=== PATIENT | male | born 1935 | race Caucasian/White ===

== ENCOUNTER 2017-03-30 17:37 | Inpatient (IN) | payer OTHER ==
[~2017-03-30] VITALS: Ht 182.9 cm; Wt 59.6 kg
[2017-03-30] VITALS (7 sets, daily range): BP systolic 88–124; BP diastolic 37–63; PULSE 78–118; TEMP 37.2–38.4; O2SAT 96–100
[~2017-03-30 17:37] MED LIST: ALBU1AER9 INH; ASPI81TA28 PO; ATOR-24 PO; METO25TA56 PO; VITA1CAP4 PO
[2017-03-30] MEDS ORDERED: SODIUM CHLORIDE 0.9% 500ML 500 ML IV STA (18:13)
[2017-03-30] MEDS ORDERED: METHYLPREDNISOLONE 125 MG VIAL IV STA (18:13)
[2017-03-30] MEDS ORDERED: LEVAQUIN 750MG / 150ML D5W IV STA (18:13)
[2017-03-30] MEDS ORDERED: ACETAMINOPHEN 500 MG TAB PO STA (18:13)
[2017-03-30] MEDS ORDERED: VANCOMYCIN INJ 1,500 MG in SODIUM CHLORIDE 0.9% 500ML 500 ML IV STA (18:13)
[2017-03-30] MEDS ORDERED: ALBUT/IPRATROP 3MG/0.5MG NEB 3 ML VIAL INH STA (18:13)
[2017-03-30] MEDS ORDERED: LACTATED RINGER'S 1000ML 1,000 ML IV STA (18:13)
[2017-03-30 18:39] LABS: URINE APPEARANCE CLOUDY (CLEAR); URINE BILIRUBIN NEG (NEG); URINE COLOR YELLOW; URINE NITRITE NEG (NEG); URINE SPECIFIC GRAVITY 1.023 (1.000-1.030); UROBILINOGEN NEG (NEG)
[2017-03-30 18:41] LABS: MANUAL MICROSCOPIC REQUIRED? YES; REVIEW REQ? NO
--- NOTE | 2017-03-30 18:46 | DIAGNOSTIC IMAGING REPORT ---
CHEST ONE VIEW PORTABLE HISTORY: 81 years-old Male Evaluate Fever/Sepsis acute fever and sepsis COMPARISON: Chest radiograph 10/07/2015, chest CT 09/08/2013 TECHNIQUE: Semiupright AP view of the chest FINDINGS: Cardiac silhouette is within normal limits. There is tortuosity and atherosclerosis of the aorta. No pneumothorax, pleural effusion, focal airspace consolidation or overt pulmonary edema. Hyperinflated lungs are noted with emphysematous changes and chronic coarsened interstitial opacities. Bones are grossly intact. IMPRESSION: Emphysema without acute cardiopulmonary process. The above report was generated using voice recognition software. It may contain grammatical, syntax or spelling errors. Electronically signed by: Jules Alonso M.D. 03/30/2017 6:45 PM Dictated Date/Time: 03/30/2017 6:43 PM
[2017-03-30 18:51] LABS: INR 1.1 (0.9-1.1); PARTIAL THROMBOPLASTIN RATIO 1.1; PROTHROMBIN TIME (PATIENT) 11.6 SECONDS (9.0-12.0)
[2017-03-30 18:52] LABS: URINE BACTERIA NEG (NEG)
[2017-03-30 18:55] LABS: HEMATOCRIT 23.3 % (42-52); MEAN CELL VOLUME 64.4 fL (80-100); MEAN CORPUSCULAR HEMOGLOBIN 17.7 pg (25-34); MEAN CORPUSCULAR HGB CONC 27.5 g/dl (32-36); RED BLOOD COUNT 3.62 M/uL (4.7-6.1); WHITE BLOOD COUNT 4.93 K/uL (4.8-10.8)
[2017-03-30 19:04] LABS: VEN BLOOD GAS BASE EXCESS 1.2 mEq/L; VENOUS BLOOD GAS PCO2 45 mmHg (38.0-50.0); VENOUS BLOOD GAS PO2 20 mmHg
[2017-03-30 19:06] LABS: BUN/CREATININE RATIO 18.3 (10-20); CALCIUM 7.6 mg/dl (8.5-10.1); CREATININE 0.95 mg/dl (0.60-1.40); POTASSIUM 3.8 mmol/L (3.5-5.1)
[2017-03-30 19:21] LABS: MEAN PLATELET VOLUME 9.1 fL (7.4-10.4); PLATELET COUNT 179 K/uL (130-400)
[2017-03-30 19:23] LABS: BASO % 0.2 %; BASO ABS # 0.01 K/uL (0-0.2); COMPLETE YES; GIANT PLATELETS 1+; HYPOCHROMIA PRESENT; IG% 0.2 %; LARGE PLATELETS 1+; LYMPH % 9.7 %; LYMPH ABS # 0.48 K/uL (1.2-3.4); MICROCYTOSIS PRESENT; MONO % 2.6 %; NEUT % 87.3 %; POIKILOCYTOSIS PRESENT
[2017-03-30 19:24] LABS: CKMB/CK RATIO 0.1 (0-3.0)
[2017-03-30] MEDS ORDERED: PRLSR20 PO (19:30)
[2017-03-30] MEDS ORDERED: OXYC-57 PO (19:30)
[2017-03-30] MEDS ORDERED: LORA-741 PO (19:30)
[2017-03-30] MEDS ORDERED: OXGN (19:30)
[2017-03-30] MEDS ORDERED: ASPI81TA28 PO (19:30)
[2017-03-30] MEDS ORDERED: CITA10TA8 PO (19:30)
[2017-03-30] MEDS ORDERED: DOCU-94 PO (19:30)
[2017-03-30] MEDS ORDERED: ATR10 PO (19:30)
[2017-03-30] MEDS ORDERED: MULT-506 PO (19:30)
[2017-03-30] MEDS ORDERED: MRPL PO (19:33)
[2017-03-30 20:31] LABS: VEN BLD GAS O2 SATURATION < 60.0 %
--- NOTE | 2017-03-30 21:46 | History and Physical ---
History & Physical Date & Time of Service: Mar 30, 2017 at 21:46 Chief Complaint: Confusion, Weakness Primary Care Physician: Ramirez Young MD History of Present Illness Source: patient, family, clinic records, hospital records 81 year old male with PMH of COPD, HTN, AAA, CVA was brought to the Emergency Room with complaints altered mental status and weakness. History mostly obtained from his nephew. Pt has been on hospice for the past 2 yrs. His nephew (KATE) went to visit him and found him on the floor cover with urine. Pt was very confused and weak and was not able to recognize his hospice nurse. As per nephew, Pt lives alone. He checked on him yesterday, but pt was sleeping. Pt tried to call his niece last night, but the niece missed his called. when niece called back, pt did not answered. Nephew said that pt was very pale today. He said about 2 weeks ago, pt has a bloody bowel movement. Nephew said that the hospice nurse made him sign a paper to bring pt to the hospital for eval. He has been having a productive cough associated with chills. In the ER, he was found to be febrile. Denies any chest pain, palpitation, neck pain, headache, dizziness. Past Medical/Surgical History Medical Problems: (1) Aortic aneurysm rupture Status: Resolved (2) Hypertension Status: Chronic Social History Smoking Status: Former Smoker Immunizations History of Influenza Vaccine: No History of Tetanus Vaccine?: Unknown History of Pneumococcal: Unknown History of Hepatitis B Vaccine: Unknown Multi-Drug Resistant Organisms History of MDRO: No Allergies Coded Allergies: No Known Allergies (Verified , 03/30/17) Home Medications Scheduled Aspirin (Aspirin Ec), 81 MG PO DAILY Citalopram Hydrobromide (Celexa), 10 MG PO DAILY Docusate Sodium (Colace), 100 MG PO DAILY Home O2 Therapy (Oxygen), 3 LITERS NA CONTINOUS Multivitamin (Multivitamin), 1 TAB PO DAILY Omeprazole (Prilosec), 20 MG PO DAILY Scheduled PRN Albuterol Sulfate (Proair Respiclick), 1 PUFF INH Q4 PRN for Shortness of Breath Hydroxyzine HCl (Hydroxyzine HCl), 10 MG PO Q6 PRN for Itching Lorazepam (Ativan), 0.5 MG PO Q4 PRN for Anxiety Morphine Sulfate (Morphine Sulfate), 5-10 MG PO DIRECTED PRN for PRN Oxycodone/Acetaminophen 5MG/325MG (Percocet 5MG/325MG), 1 TABLET PO Q4H PRN for Pain Review of Systems Constitutional: + fever, + chills, + weakness Eyes: No eye pain, No redness ENT: + problem reported (decrease hearing function), No nasal symptoms, No sore throat Respiratory: + cough, + sputum, No shortness of breath Cardiovascular: No chest pain, No palpitations Abdomen: No pain, No nausea, No vomiting Musculoskeletal: No calf pain Genitourinary - Male: No hematuria, No dysuria Neurologic: + weakness, + balance problems Psychiatric: No substance abuse Endocrine: No excessive thirst Hematologic / Lymphatic: No abnormal bleeding/bruising Integumentary: No rash, No itch Physical Exam Vital Signs Date Time Temp Pulse Resp B/P (MAP) Pulse Ox O2 Delivery O2 Flow Rate FiO2 03/30/17 21:42 94 20 118/55 100 Room Air 4.0 Nasal Cannula 03/30/17 21:39 37.6 95 21 118/55 100 4.0 03/30/17 20:45 38.4 106 24 88/37 100 4.0 03/30/17 20:20 38.4 118 22 101/39 96 03/30/17 19:29 121 26 137/62 94 Nasal Cannula 3.0 03/30/17 18:25 92 Nasal Cannula 3.0 03/30/17 18:21 128 24 114/81 96 Nasal Cannula 4.0 03/30/17 18:06 39.5 123 24 142/82 94 Nasal Cannula 03/30/17 18:00 118 General Appearance: + cachetic Head: atraumatic Eyes: PERRL ENT: + pertinent finding (decrease hearing function) Neck: no JVD, trachea midline Respiratory/Chest: no respiratory distress, no accessory muscle use, + pertinent finding (poor air entry) Cardiovascular: no edema, no JVD Abdomen/GI: normal bowel sounds, non tender, soft Back: no CVA tenderness Extremities/Musculoskelatal: no calf tenderness Neurologic/Psych: alert, normal mood/affect, + pertinent finding (Oriented to people and place, able to move all 4 extremities) Skin: + pertinent finding (pale) Diagnostics Laboratory Results Results Past 24 Hours Test 03/30/17 18:00 03/30/17 18:20 03/30/17 18:27 03/30/17 20:00 Range/Units Urine Color YELLOW Urine Appearance CLOUDY CLEAR Urine pH 5.0 4.5-7.5 Urine Specific Wiley 1.023 1.000-1.030 Urine Protein 1+ NEG Urine Glucose (UA) NEG NEG Urine Ketones TRACE NEG Urine Occult Blood 2+ NEG Urine Nitrite NEG NEG Urine Bilirubin NEG NEG Urine Urobilinogen NEG NEG Urine Leukocyte Esterase NEG NEG Urine Hyaline Casts (Auto) 0-5 /lpf Urine RBC 5-10 0-4 /hpf Urine WBC 1-5 0-5 /hpf Urine Epithelial Cells 10-20 0-5 /lpf Urine Bacteria NEG NEG Urine Hyaline Casts 5-10 0-5 /lpf Urine Granular Casts 5-10 0 /lpf Urine Pathogenic Casts 0 /lpf White Blood Count 4.93 4.8-10.8 K/uL Red Blood Count 3.62 4.7-6.1 M/uL Hemoglobin 6.4 14.0-18.0 g/dL Hematocrit 23.3 42-52 % Mean Corpuscular Volume 64.4 80-100 fL Mean Corpuscular Hemoglobin 17.7 25-34 pg Mean Corpuscular Hemoglobin Concent 27.5 32-36 g/dl Platelet Count 179 130-400 K/uL Mean Platelet Volume 9.1 7.4-10.4 fL Neutrophils (%) (Auto) 87.3 % Lymphocytes (%) (Auto) 9.7 % Monocytes (%) (Auto) 2.6 % Eosinophils (%) (Auto) 0.0 % Basophils (%) (Auto) 0.2 % Neutrophils # (Auto) 4.30 1.4-6.5 K/uL Lymphocytes # (Auto) 0.48 1.2-3.4 K/uL Monocytes # (Auto) 0.13 0.11-0.59 K/uL Eosinophils # (Auto) 0.00 0-0.5 K/uL Basophils # (Auto) 0.01 0-0.2 K/uL RDW Standard Deviation 45.6 36.4-46.3 fL RDW Coefficient of Variation 19.1 11.5-14.5 % Immature Granulocyte % (Auto) 0.2 % Immature Granulocyte # (Auto) 0.01 0.00-0.02 K/uL Blood Smear Review Large Platelets 1+ Giant Platelets 1+ Hypochromasia PRESENT Poikilocytosis PRESENT Microcytosis PRESENT Prothrombin Time 11.6 9.0-12.0 SECONDS Prothromb Time International Ratio 1.1 0.9-1.1 Activated Partial Thromboplast Time 29.5 21.0-31.0 SECONDS Partial Thromboplastin Ratio 1.1 Venous Blood pH 7.39 7.36-7.41 Venous Blood Partial Pressure CO2 45 38.0-50.0 mmHg Venous Blood Partial Pressure O2 20 mmHg Venous Blood HCO3 26 mmol/L Venous Blood Oxygen Saturation < 60.0 % Venous Blood Base Excess 1.2 mEq/L Sodium Level 136 136-145 mmol/L Potassium Level 3.8 3.5-5.1 mmol/L Chloride Level 105 98-107 mmol/L Carbon Dioxide Level 25 21-32 mmol/L Anion Gap 6.0 3-11 mmol/L Blood Urea Nitrogen 17 7-18 mg/dl Creatinine 0.95 0.60-1.40 mg/dl Est Creatinine Clear Calc Drug Dose 50.4 ml/min Estimated GFR () 85.5 Estimated GFR (Non- 73.7 BUN/Creatinine Ratio 18.3 10-20 Random Glucose 109 70-99 mg/dl Calcium Level 7.6 8.5-10.1 mg/dl Total Bilirubin 0.4 0.2-1 mg/dl Direct Bilirubin 0.1 0-0.2 mg/dl Aspartate Amino Transf (AST/SGOT) 99 15-37 U/L Alanine Aminotransferase (ALT/SGPT) 31 12-78 U/L Alkaline Phosphatase 49 45-117 U/L Total Creatine Kinase 1783 39-308 U/L Creatine Kinase MB 2.0 0.5-3.6 ng/ml Creatine Kinase MB Ratio 0.1 0-3.0 Troponin I 0.112 0-0.045 ng/ml Total Protein 6.4 6.4-8.2 gm/dl Albumin 3.0 3.4-5.0 gm/dl Lipase 53 73-393 U/L Bedside Lactic Acid Venous 1.64 0.90-1.70 mmol/L Influenza Type A Antigen Neg for Influ A NEG Influenza Type B Antigen Neg for Influ B NEG Microbiology Results 03/30/17 Blood Culture, Received Pending 03/30/17 Blood Culture, Received Pending 03/30/17 Urine Culture, Received Pending Diagnostic Radiology CHEST ONE VIEW PORTABLE HISTORY: 81 years-old Male Evaluate Fever/Sepsis acute fever and sepsis COMPARISON: Chest radiograph 10/07/2015, chest CT 09/08/2013 TECHNIQUE: Semiupright AP view of the chest FINDINGS: Cardiac silhouette is within normal limits. There is tortuosity and atherosclerosis of the aorta. No pneumothorax, pleural effusion, focal airspace consolidation or overt pulmonary edema. Hyperinflated lungs are noted with emphysematous changes and chronic coarsened interstitial opacities. Bones are grossly intact. IMPRESSION: Emphysema without acute cardiopulmonary process. The above report was generated using voice recognition software. It may contain grammatical, syntax or spelling errors. Electronically signed by: Jules Alonso M.D. 03/30/2017 6:45 PM Dictated Date/Time: 03/30/2017 6:43 PM Impression Assessment and Plan Sepsis Present with fever, tachycardia, Altered mental status and hypotension in the ER WBC and lactic acid normal Received Vanco, Levaquin in the ER Blood cx and urine cx collected in the ER Continue Vanco and levaquin IV peripheral blood smear showed anaplasmosis will check for ehrlichiosis flu negative Monitor CBC check procalcitonin Altered Mental Status Related to above mental status improve as per son Pt and nephews refused any heroic management Refused CT head continue monitor Elevated troponin Mostly related to dehydration, rhabdo Denies any chest pain EKG showed sinus tachy Jose A hold asa due to Anemia follow troponin Pt refused any aggressive management Anemia had a episode of GI bleed 2 weeks ago Denies any active bleeding Hgb 6.4 on admission Received 2 units PRBC in the ER Pt does want any EGD and colonoscopy Repeat CBC in am hold aspirin Rhabdo CK level 1783 Continue IVF Repeat CK level in am COPD CXR showed Emphysema without acute cardiopulmonary process. Received solumedrol 125 mg Continue oxygen supplement and Duoneb DVT px on SCD CODE STATUS DNR Pt has been on hospice for 2 hrs Disposition Consult palliative care Discharge on home hospice Level of Care Med/Surg Resuscitation Status DO NOT RESUSCITATE VTE Prophylaxis VTE Risk Assessment Done? Y/N: Yes Risk Level: Moderate Given or contraindicated: SCD's
[2017-03-31] VITALS (10 sets, daily range): BP systolic 102–144; BP diastolic 52–76; PULSE 69–91; TEMP 36.4–37.2; O2SAT 92–100; Ht 182.9 cm; Wt 59.6 kg
--- NOTE | 2017-03-31 00:33 | EMERGENCY ROOM VISIT NOTE ---
History Report prepared by Bee: Mary Marinelli Under the Supervision of: Dr. Octaviano Boyer M.D. First contact with patient: 18:04 Stated Complaint: CONFUSION, WEAKNESS History of Present Illness The patient is an 81 year old male who presents to the Emergency Room with complaints of a persistent fever for the past 2 days. He is accompanied by his son and was brought to the ED via EMS. He received 500 ml of NSS while in the field. Nursing reports he has experienced increasing confusion and falls in the past 2 days. His son notes he did not recognize his hospice nurse earlier this week, which is unusual for him. This afternoon, his son gave him 1 Ativan, but he has had no Tylenol or Motrin for his fever. The patient also complains of chest pain and abdominal pain, but states the abdominal pain is "all the time". He has a history of COPD and complains of a productive cough recently as well as the chills. His son reports he has been on hospice for the past 2 years due to his breathing issues. The patient notes "a few weeks ago" he experienced hematochezia, but states "that cleared up". He denies any recent steroid use. The patient denies any LOC, headache, diaphoresis, visual changes, neck pain, nausea, vomiting, back pain, melena, urinary symptoms, numbness, weakness, lymphadenopathy, rash, or other complaints. Source of History: patient, family (son), nursing staff Onset: 2 days NETWORK CONTROLLER Position: other (global) Timing: other (persistent) Associated Symptoms: + chills, + cough, + chest pain, + abdominal pain, + hematochezia Review of Systems See HPI for pertinent positives and negatives. A total of ten systems were reviewed and were otherwise negative. Past Medical & Surgical Medical Problems: (1) Altered mental status (2) Anemia (3) Aortic aneurysm rupture (4) Confusion (5) COPD (chronic obstructive pulmonary disease) (6) Hypertension Social History Smoking Status: Former Smoker Alcohol Use: none Drug Use: none Marital Status: Housing Status: lives alone Occupation Status: retired Current/Historical Medications Scheduled Aspirin (Aspirin Ec), 81 MG PO DAILY Aspirin (Aspirin Ec), 81 MG PO DAILY Citalopram Hydrobromide (Celexa), 10 MG PO DAILY Docusate Sodium (Colace), 100 MG PO DAILY Home O2 Therapy (Oxygen), 3 LITERS NA CONTINOUS Multivitamin (Multivitamin), 1 TAB PO DAILY Omeprazole (Prilosec), 20 MG PO DAILY Scheduled PRN Hydroxyzine HCl (Hydroxyzine HCl), 10 MG PO Q6 PRN for PRN Lorazepam (Ativan), 0.5 MG PO Q4 PRN for Anxiety Morphine Sulfate (Morphine Sulfate), 5-10 MG PO DIRECTED PRN for PRN Oxycodone/Acetaminophen 5MG/325MG (Percocet 5MG/325MG), 1 TABLET PO Q4H PRN for Pain Allergies Coded Allergies: No Known Allergies (Verified , 03/30/17) Physical Exam Vital Signs Date Time Temp Pulse Resp B/P (MAP) Pulse Ox O2 Delivery O2 Flow Rate FiO2 03/30/17 21:42 94 20 118/55 100 Room Air 4.0 Nasal Cannula 03/30/17 21:39 37.6 95 21 118/55 100 4.0 03/30/17 20:45 38.4 106 24 88/37 100 4.0 03/30/17 20:20 38.4 118 22 101/39 96 03/30/17 19:29 121 26 137/62 94 Nasal Cannula 3.0 03/30/17 18:25 92 Nasal Cannula 3.0 03/30/17 18:21 128 24 114/81 96 Nasal Cannula 4.0 03/30/17 18:06 39.5 123 24 142/82 94 Nasal Cannula 03/30/17 18:00 118 Physical Exam GENERAL: Awake, alert, well-appearing, in no distress HENT: Normocephalic, atraumatic. Oropharynx unremarkable. EYES: Pale conjunctiva. Sclera non-icteric. NECK: Supple. No nuchal rigidity. FROM. No JVD. RESPIRATORY: Patient is tachypneic, scattered rhonchi. CARDIAC: Tachycardic heart rate, normal rhythm. Extremities warm and well perfused. Pulses equal. ABDOMEN: Soft, non-distended. No tenderness to palpation. No rebound or guarding. No masses. RECTAL: Deferred. MUSCULOSKELETAL: Chest examination reveals no tenderness. The back is symmetrical on inspection without obvious abnormality. There is no CVA tenderness to palpation. No joint edema. LOWER EXTREMITIES: Calves are equal size bilaterally and non-tender. No edema. No discoloration. NEURO: Normal sensorium. No sensory or motor deficits noted. SKIN: No rash or jaundice noted. Medical Decision & Procedures ER Provider Diagnostic Interpretation: Radiology results as stated below per my review and radiologist interpretation: CHEST ONE VIEW PORTABLE HISTORY: 81 years-old Male Evaluate Fever/Sepsis acute fever and sepsis COMPARISON: Chest radiograph 10/07/2015, chest CT 09/08/2013 TECHNIQUE: Semiupright AP view of the chest FINDINGS: Cardiac silhouette is within normal limits. There is tortuosity and atherosclerosis of the aorta. No pneumothorax, pleural effusion, focal airspace consolidation or overt pulmonary edema. Hyperinflated lungs are noted with emphysematous changes and chronic coarsened interstitial opacities. Bones are grossly intact. IMPRESSION: Emphysema without acute cardiopulmonary process. The above report was generated using voice recognition software. It may contain grammatical, syntax or spelling errors. Electronically signed by: Jules Alonso M.D. 03/30/2017 6:45 PM Laboratory Results 03/30/17 18:20 Red Blood Count 3.62, Mean Corpuscular Volume 64.4, Mean Corpuscular Hemoglobin 17.7, Mean Corpuscular Hemoglobin Concent 27.5, Mean Platelet Volume 9.1, Neutrophils (%) (Auto) 87.3, Lymphocytes (%) (Auto) 9.7, Monocytes (%) (Auto) 2.6, Eosinophils (%) (Auto) 0.0, Basophils (%) (Auto) 0.2, Neutrophils # (Auto) 4.30, Lymphocytes # (Auto) 0.48, Monocytes # (Auto) 0.13, Eosinophils # (Auto) 0.00, Basophils # (Auto) 0.01 03/30/17 18:20 Test 03/30/17 18:00 03/30/17 18:20 03/30/17 18:27 03/30/17 20:00 Urine Color YELLOW Urine Appearance CLOUDY (CLEAR) Urine pH 5.0 (4.5-7.5) Urine Specific Bandy 1.023 (1.000-1.030) Urine Protein 1+ (NEG) Urine Glucose (UA) NEG (NEG) Urine Ketones TRACE (NEG) Urine Occult Blood 2+ (NEG) Urine Nitrite NEG (NEG) Urine Bilirubin NEG (NEG) Urine Urobilinogen NEG (NEG) Urine Leukocyte Esterase NEG (NEG) Urine Hyaline Casts (Auto) /lpf (0-5) Urine RBC 5-10 /hpf (0-4) Urine WBC 1-5 /hpf (0-5) Urine Epithelial Cells 10-20 /lpf (0-5) Urine Bacteria NEG (NEG) Urine Hyaline Casts 5-10 /lpf (0-5) Urine Granular Casts 5-10 /lpf (0) Urine Pathogenic Casts /lpf (0) White Blood Count 4.93 K/uL (4.8-10.8) Red Blood Count 3.62 M/uL (4.7-6.1) Hemoglobin 6.4 g/dL (14.0-18.0) Hematocrit 23.3 % (42-52) Mean Corpuscular Volume 64.4 fL (80-100) Mean Corpuscular Hemoglobin 17.7 pg (25-34) Mean Corpuscular Hemoglobin Concent 27.5 g/dl (32-36) Platelet Count 179 K/uL (130-400) Mean Platelet Volume 9.1 fL (7.4-10.4) Neutrophils (%) (Auto) 87.3 % Lymphocytes (%) (Auto) 9.7 % Monocytes (%) (Auto) 2.6 % Eosinophils (%) (Auto) 0.0 % Basophils (%) (Auto) 0.2 % Neutrophils # (Auto) 4.30 K/uL (1.4-6.5) Lymphocytes # (Auto) 0.48 K/uL (1.2-3.4) Monocytes # (Auto) 0.13 K/uL (0.11-0.59) Eosinophils # (Auto) 0.00 K/uL (0-0.5) Basophils # (Auto) 0.01 K/uL (0-0.2) RDW Standard Deviation 45.6 fL (36.4-46.3) RDW Coefficient of Variation 19.1 % (11.5-14.5) Immature Granulocyte % (Auto) 0.2 % Immature Granulocyte # (Auto) 0.01 K/uL (0.00-0.02) Blood Smear Review Large Platelets 1+ Giant Platelets 1+ Hypochromasia PRESENT Poikilocytosis PRESENT Microcytosis PRESENT Prothrombin Time 11.6 SECONDS (9.0-12.0) Prothromb Time International Ratio 1.1 (0.9-1.1) Activated Partial Thromboplast Time 29.5 SECONDS (21.0-31.0) Partial Thromboplastin Ratio 1.1 Venous Blood pH 7.39 (7.36-7.41) Venous Blood Partial Pressure CO2 45 mmHg (38.0-50.0) Venous Blood Partial Pressure O2 20 mmHg Venous Blood HCO3 26 mmol/L Venous Blood Oxygen Saturation < 60.0 % Venous Blood Base Excess 1.2 mEq/L Anion Gap 6.0 mmol/L (3-11) Est Creatinine Clear Calc Drug Dose 50.4 ml/min Estimated GFR () 85.5 Estimated GFR (Non- 73.7 BUN/Creatinine Ratio 18.3 (10-20) Calcium Level 7.6 mg/dl (8.5-10.1) Total Bilirubin 0.4 mg/dl (0.2-1) Direct Bilirubin 0.1 mg/dl (0-0.2) Aspartate Amino Transf (AST/SGOT) 99 U/L (15-37) Alanine Aminotransferase (ALT/SGPT) 31 U/L (12-78) Alkaline Phosphatase 49 U/L (45-117) Total Creatine Kinase 1783 U/L (39-308) Creatine Kinase MB 2.0 ng/ml (0.5-3.6) Creatine Kinase MB Ratio 0.1 (0-3.0) Troponin I 0.112 ng/ml (0-0.045) Total Protein 6.4 gm/dl (6.4-8.2) Albumin 3.0 gm/dl (3.4-5.0) Lipase 53 U/L (73-393) Bedside Lactic Acid Venous 1.64 mmol/L (0.90-1.70) Influenza Type A Antigen Neg for Influ A (NEG) Influenza Type B Antigen Neg for Influ B (NEG) Laboratory results reviewed by me Medications Administered Medications (Trade) Dose Ordered Sig/Al Route Start Time Stop Time Status Last Admin Dose Admin Albuterol/ Ipratropium (Duoneb) 3 ml NOW STAT INH 03/30/17 18:13 03/30/17 18:18 DC 03/30/17 19:15 3 ML Acetaminophen (Tylenol Tab) 1,000 mg NOW STAT PO 03/30/17 18:13 03/30/17 18:18 DC 03/30/17 19:15 1,000 MG Lactated Ringer's 1,000 ml @ 200 mls/hr Q5H STAT IV 03/30/17 18:13 03/30/17 23:12 DC 03/30/17 19:16 200 MLS/HR Methylprednisolone Sodium Succinate (Solu-Medrol IV) 125 mg NOW STAT IV 03/30/17 18:13 03/30/17 18:18 DC 03/30/17 19:15 125 MG Levofloxacin (Levaquin / D5W) 750 mg NOW STAT IV 03/30/17 18:13 03/30/17 18:18 DC 03/30/17 19:16 750 MG Vancomycin HCl 1500 mg/Sodium Chloride 530 ml @ 200 mls/hr ONE STAT IV 03/30/17 18:13 03/30/17 20:51 DC 03/30/17 19:18 200 MLS/HR Sodium Chloride 500 ml @ 999 mls/hr Q31M STAT IV 03/30/17 18:13 03/30/17 18:43 DC 03/30/17 18:13 999 MLS/HR ECG Indication: weakness Rate (beats per minute): 117 Rhythm: sinus tachycardia Findings: no acute ischemic change, no ectopy ED Course 1809: The patient was evaluated in room A9 . A complete history and physical exam was performed. 1812: NSS 500 ml @ 999 mls/hr IV, Vancomycin HCl 1500 mg/NSS 530 ml @ 200 mls/ hr IV, Levaquin 750 mg IV, Solu-Medrol 125 mg IV, Lactated Ringers 1000 ml @ 200 mls/hr IV, Acetaminophen 1000 mg PO, DuoNeb 3 ml INH. 1855: Nursing informed me the patients hemoglobin is 6.4. 1904: I reevaluated the patient. He is resting comfortably. I discussed my recommendation he remain in the hospital for further evaluation and management and he and his son verbalized complete understanding and agreement. 1932: I discussed the patients case with Rosalind Hernandez PA-C, [facility] Hospitalist. The patient will be further evaluated. Medical Decision Triage Nursing notes reviewed. The patient's presentation and history were concerning for fever and confusion. Etiologies such as sepsis, metabolic, infection, hypo/hyperglycemia, electrolyte abnormalities, cardiac sources, intracerebral event, toxicologic, neurologic, as well as others were entertained. The patient was evaluated. He had mild confusion. He was pale. He was hydrated. He was given a DuoNeb and Solu-Medrol. Chest x-ray revealed emphysematous changes without infiltrate. The patient had an unremarkable urine dip. He was given Levaquin and vancomycin for empiric coverage of sepsis. His CBC revealed a significant anemia. The patient and his son were educated and I discussed transfusion with them. The patient is on hospice however this is been going on for several years. He is OK with a blood transfusion as is the son.I gave my usual and customary discussion regarding this issue. He does not want intubation or mechanical ventilation. He doesn't want CPR or resuscitation. His blood pressure unremarkable. His troponin was elevated. ECG did not reveal any evidence of acute ischemic change. 2 units of packed red blood cells were ordered. The patient had a consultation placed with [facility] service. The patient was evaluated in the Emergency Room for further management. Medication Reconcilliation Current Medication List: was personally reviewed by me Blood Pressure Screening Patient's blood pressure: Normal blood pressure Blood pressure disposition: Did not require urgent referral Consults Time Called: 1914 Consulting Physician: [facility] Returned Call: 1932 I discussed the patients case with [facility] The patient will be further evaluated. Impression Primary Impression: Sepsis Additional Impressions: Anemia Elevated troponin Critical Care I have personally spent greater than 30 minutes of critical care time in the direct management of this patient. This includes bedside care, interpretation of diagnostic studies, and testing, discussion with consultants, patient, and family members, and other required patient management activities. This 30 minutes is in excess of all separately billable procedures. Scribe Attestation The scribe's documentation has been prepared under my direction and personally reviewed by me in its entirety. I confirm that the note above accurately reflects all work, treatment, procedures, and medical decision making performed by me. Departure Information Dispostion Being Evaluated By Hospitalist Ramirez Murphy MD (PCP) Problem Qualifiers
[2017-03-31] MEDS ORDERED: PNEUMOCOCCAL ADMINISTRATION CHARGE ONE (01:30)
[2017-03-31] MEDS ORDERED: PNEUMOCOCCAL POLYSACCHARIDES 25 MCG/0.5 ML VIAL/SYR IM. ONE (01:30)
[2017-03-31] MEDS ORDERED: INFLUENZA VACCINE HIGH DOSE 65+ 0.5 ML SYR IM. ONE (01:30)
[2017-03-31] MEDS ORDERED: INFLUENZA ADMINISTRATION CHARGE ONE (01:30)
[2017-03-31] MEDS ORDERED: ALBU18002 INH (04:19)
[2017-03-31] MEDS ORDERED: ALBUTEROL HFA INHALER 8.5 GM INH PRN (04:30)
[2017-03-31] MEDS ORDERED: hydrOXYzine HCL 10 MG TAB PO PRN (04:30)
[2017-03-31] MEDS ORDERED: SODIUM CHLORIDE 0.9% 1000ML 1,000 ML IV SCH (05:00)
[2017-03-31 05:37] LABS: HEMATOCRIT 28.7 % (42-52); MEAN CORPUSCULAR HGB CONC 28.9 g/dl (32-36); PLATELET COUNT 145 K/uL (130-400); PLT ESTIMATE NORMAL; RED BLOOD COUNT 4.16 M/uL (4.7-6.1); WHITE BLOOD COUNT 5.17 K/uL (4.8-10.8)
[2017-03-31 05:38] LABS: BUN/CREATININE RATIO 20.3 (10-20); CALCIUM 7.8 mg/dl (8.5-10.1); CREATININE 0.8 mg/dl (0.60-1.40)
[2017-03-31] MEDS ORDERED: VANCOMYCIN CONSULT ACTIVE PRN (06:00)
[2017-03-31] MEDS: MULTIVITAMIN TAB PO SCH (08:46)
[2017-03-31] MEDS: PANTOprazole SOD 40 MG TAB PO SCH (08:46)
[2017-03-31] MEDS: CITALOPRAM 20 MG TAB PO SCH (08:46)
[2017-03-31] MEDS: DOCUSATE SODIUM 100 MG CAP PO SCH (08:47)
[2017-03-31] MEDS ORDERED: ASPIRIN 81 MG ECTAB PO SCH (09:00)
[2017-03-31] MEDS: VANCOMYCIN INJ 750 MG in SODIUM CHLORIDE 0.9% 250ML 250 ML IV SCH (09:53)
--- NOTE | 2017-03-31 09:53 | Pharmacy Progress Note ---
Pharmacy Abx Initial Consult Date of Service Mar 31, 2017. Pharmacy Dosing Scope Date of Consult: 03/30/17 Consultation requested by: Dr. Marshall Pharmacy is consulted to initiate Vancomycin IV dosing therapy, order appropriate labs and adjust drug dose/frequency. Subjective The patient is a 81 year old male admitted on Mar 30, 2017 at 21:44 with AMS and weakness, found unresponsive covered in urine. PMH of COPD on O2 at home, HTN, AAA, CVA, lives at home alone, on hospice x 2 years with home nursing. Recently had bloody BM at home. Objective Height (Feet): 6 Height (Inches): 0.00 Weight (Kilograms): 59.600 Vital Signs (Past 12Hrs) Vital Signs Past 12 Hours Date Time Temp Pulse Resp B/P (MAP) Pulse Ox O2 Delivery O2 Flow Rate FiO2 03/31/17 07:56 36.4 76 18 133/69 (90) 97 Nasal Cannula 3.0 03/31/17 04:00 Nasal Cannula 2.0 03/31/17 04:00 36.6 69 22 102/52 (69) 98 Nasal Cannula 2.0 03/31/17 01:22 37.2 76 20 105/54 100 2.0 03/31/17 00:43 37.0 80 20 108/55 100 4.0 03/31/17 00:00 37.2 87 20 106/62 100 Nasal Cannula 4.0 03/30/17 23:45 37.2 87 20 106/62 100 4.0 03/30/17 23:00 37.4 97 22 124/63 100 4.0 03/30/17 22:45 37.6 78 22 100/51 100 4.0 03/30/17 22:38 85 22 100/51 100 Nasal Cannula 4.0 03/30/17 22:35 37.6 82 22 100/51 100 4.0 Lab Results (24Hrs) Last 24 Hours Test 03/30/17 18:00 03/30/17 18:20 03/30/17 18:27 03/30/17 20:00 Urine Color YELLOW Urine Appearance CLOUDY Urine pH 5.0 Urine Specific [place] 1.023 Urine Protein 1+ Urine Glucose (UA) NEG Urine Ketones TRACE Urine Occult Blood 2+ Urine Nitrite NEG Urine Bilirubin NEG Urine Urobilinogen NEG Urine Leukocyte Esterase NEG Urine Hyaline Casts (Auto) /lpf Urine RBC 5-10 /hpf Urine WBC 1-5 /hpf Urine Epithelial Cells 10-20 /lpf Urine Bacteria NEG Urine Hyaline Casts 5-10 /lpf Urine Granular Casts 5-10 /lpf Urine Pathogenic Casts /lpf White Blood Count 4.93 K/uL Red Blood Count 3.62 M/uL Hemoglobin 6.4 g/dL Hematocrit 23.3 % Mean Corpuscular Volume 64.4 fL Mean Corpuscular Hemoglobin 17.7 pg Mean Corpuscular Hemoglobin Concent 27.5 g/dl Platelet Count 179 K/uL Mean Platelet Volume 9.1 fL Neutrophils (%) (Auto) 87.3 % Lymphocytes (%) (Auto) 9.7 % Monocytes (%) (Auto) 2.6 % Eosinophils (%) (Auto) 0.0 % Basophils (%) (Auto) 0.2 % Neutrophils # (Auto) 4.30 K/uL Lymphocytes # (Auto) 0.48 K/uL Monocytes # (Auto) 0.13 K/uL Eosinophils # (Auto) 0.00 K/uL Basophils # (Auto) 0.01 K/uL RDW Standard Deviation 45.6 fL RDW Coefficient of Variation 19.1 % Immature Granulocyte % (Auto) 0.2 % Immature Granulocyte # (Auto) 0.01 K/uL Blood Smear Review Large Platelets 1+ Giant Platelets 1+ Hypochromasia PRESENT Poikilocytosis PRESENT Microcytosis PRESENT Prothrombin Time 11.6 SECONDS Prothromb Time International Ratio 1.1 Activated Partial Thromboplast Time 29.5 SECONDS Partial Thromboplastin Ratio 1.1 Venous Blood pH 7.39 Venous Blood Partial Pressure CO2 45 mmHg Venous Blood Partial Pressure O2 20 mmHg Venous Blood HCO3 26 mmol/L Venous Blood Oxygen Saturation < 60.0 % Venous Blood Base Excess 1.2 mEq/L Sodium Level 136 mmol/L Potassium Level 3.8 mmol/L Chloride Level 105 mmol/L Carbon Dioxide Level 25 mmol/L Anion Gap 6.0 mmol/L Blood Urea Nitrogen 17 mg/dl Creatinine 0.95 mg/dl Est Creatinine Clear Calc Drug Dose 50.4 ml/min Estimated GFR () 85.5 Estimated GFR (Non- 73.7 BUN/Creatinine Ratio 18.3 Random Glucose 109 mg/dl Calcium Level 7.6 mg/dl Total Bilirubin 0.4 mg/dl Direct Bilirubin 0.1 mg/dl Aspartate Amino Transf (AST/SGOT) 99 U/L Alanine Aminotransferase (ALT/SGPT) 31 U/L Alkaline Phosphatase 49 U/L Total Creatine Kinase 1783 U/L Creatine Kinase MB 2.0 ng/ml Creatine Kinase MB Ratio 0.1 Troponin I 0.112 ng/ml Total Protein 6.4 gm/dl Albumin 3.0 gm/dl Lipase 53 U/L Bedside Lactic Acid Venous 1.64 mmol/L Influenza Type A Antigen Neg for Influ A Influenza Type B Antigen Neg for Influ B Test 03/31/17 04:55 03/31/17 05:28 White Blood Count 5.17 K/uL Red Blood Count 4.16 M/uL Hemoglobin 8.3 g/dL Hematocrit 28.7 % Mean Corpuscular Volume 69.0 fL Mean Corpuscular Hemoglobin 20.0 pg Mean Corpuscular Hemoglobin Concent 28.9 g/dl RDW Standard Deviation 54.9 fL RDW Coefficient of Variation 21.7 % Platelet Count 145 K/uL Platelet Estimate NORMAL Sodium Level 138 mmol/L Potassium Level 4.0 mmol/L Chloride Level 104 mmol/L Carbon Dioxide Level 27 mmol/L Anion Gap 7.0 mmol/L Blood Urea Nitrogen 16 mg/dl Creatinine 0.80 mg/dl Est Creatinine Clear Calc Drug Dose 58.4 ml/min Estimated GFR () 95.7 Estimated GFR (Non- 82.6 BUN/Creatinine Ratio 20.3 Random Glucose 134 mg/dl Calcium Level 7.8 mg/dl Total Creatine Kinase 1523 U/L Troponin I 0.095 ng/ml Procalcitonin 1.33 ng/ml Micro Results Date/Time Source Procedure Growth Status 03/30/17 18:31 Blood Blood Culture Pending Received 03/30/17 18:23 Blood Blood Culture Pending Received 03/30/17 18:00 Urine,Catheterized Urine Culture Pending Received Assessment & Plan Assessment 81 year old male admitted for AMS and weakness, anemia, elevated troponin, sepsis, started on IV Vancomycin and Levaquin. Plan Vancomycin IV for treatment of Sepsis Vancomycin IV * Loading dose: 1500 mg (25.4 mg/kg) on 03/30 at 1900 * Maintenance dose: 750 mg IV (12.7 mg/kg) every 14 hours - will dose at patient 's half life, since dose is slightly low on mg/kg basis * Estimated pharmacokinetic parameters: T1/2 = 14hrs, Raul = 0.05/hr, Vd = 0.7 L/ kg * Goal trough level for sepsis : 15 to 20 mcg/mL * Trough level ordered for 04/01/17 prior to 1400 dose, this level will be drawn after patient has received 3 total doses of IV vancomycin Pharmacy will continue to follow and will adjust dose/frequency as necessary. Thank you.
--- NOTE | 2017-03-31 09:53 | Progress Note ---
Internal Med Progress Note Date of Service: Mar 31, 2017. Provider Documentation: SUBJECTIVE: Seen and examined at bedside Mental status seemed to be back to baseline Discussed with patient's Nephew: No aggressive measures per patient's wishes Would like to hold on future blood transfusions till he discusses with patient States having chills Denies chest pain, SOB, abd pain, dizziness No active bleeding issues OBJECTIVE: Vital Signs-as noted below Physical Exam: General Appearance:Thin, chronic ill appearing, no apparent distress Head: normocephalic, Atraumatic Eyes: normal inspection, EOMI, PERRL Neck: supple, Trachea midline Respiratory/Chest: Normal breath sounds, CTA Cardiovascular: S1, S2, No murmur Abdomen/GI:Soft, Non tender, Bowel sounds present Extremities/Musculoskelatal:normal inspection, no edema Neurologic/Psych:grossly no focal neurological deficits Skin: normal color, warm Lab data as noted below. ASSESSMENT & PLAN: Probable Sepsis SIRS Present with fever, tachycardia, Altered mental status and hypotension in the ER WBC and lactic acid normal Received Vanco, Levaquin in the ER Blood cx and urine cx: pending Continue Vanco and levaquin IV for now as clinically seemed to be improving peripheral blood smear showed anaplasmosis Serology for Anaplasmosis, ehrlichiosis pending flu negative Likely Metabolic Encephalopathy Altered Mental Status: unclear etiology mental status seemed to be improving No aggressive measures as per patient and family Refused CT head continue monitor Elevated troponin Levels trending down Denies any chest pain EKG: sinus tachy, Nonspecific ST and T wave abnormality hold asa due to Anemia No aggressive management per patient/family Anemia had a episode of GI bleed 2 weeks ago No acute bleeding issues Hgb 6.4>>>>8.3 S/P 2 units PRBCs Pt does want any EGD and colonoscopy Monitor Hb hold aspirin Nephew to discuss with patient prior to future blood transfusion, to hold for now Microhematuria on urine analysis Mild Rhabdo CK level [id number]>>>[id number] Continue IVF Monitor CK COPD CXR showed Emphysema without acute cardiopulmonary process. Received solumedrol 125 mg Continue oxygen supplement and Duoneb No signs of exacerbation DVT px SCD due to anemia CODE STATUS DNR Pt has been on hospice for 2 yrs Disposition Consulted manager social responsibility/palliative care Vital Signs: Date Time Temp Pulse Resp B/P (MAP) Pulse Ox O2 Delivery O2 Flow Rate FiO2 03/31/17 07:56 36.4 76 18 133/69 (90) 97 Nasal Cannula 3.0 03/31/17 04:00 Nasal Cannula 2.0 03/31/17 04:00 36.6 69 22 102/52 (69) 98 Nasal Cannula 2.0 03/31/17 01:22 37.2 76 20 105/54 100 2.0 03/31/17 00:43 37.0 80 20 108/55 100 4.0 03/31/17 00:00 37.2 87 20 106/62 100 Nasal Cannula 4.0 03/30/17 23:45 37.2 87 20 106/62 100 4.0 03/30/17 23:00 37.4 97 22 124/63 100 4.0 03/30/17 22:45 37.6 78 22 100/51 100 4.0 03/30/17 22:38 85 22 100/51 100 Nasal Cannula 4.0 03/30/17 22:35 37.6 82 22 100/51 100 4.0 03/30/17 21:42 94 20 118/55 100 Room Air 4.0 Nasal Cannula 03/30/17 21:39 37.6 95 21 118/55 100 4.0 03/30/17 20:45 38.4 106 24 88/37 100 4.0 03/30/17 20:20 38.4 118 22 101/39 96 03/30/17 19:29 121 26 137/62 94 Nasal Cannula 3.0 03/30/17 18:25 92 Nasal Cannula 3.0 03/30/17 18:21 128 24 114/81 96 Nasal Cannula 4.0 03/30/17 18:06 39.5 123 24 142/82 94 Nasal Cannula 03/30/17 18:00 118 Lab Results: Results Past 24 Hours Test 03/30/17 18:00 03/30/17 18:20 03/30/17 18:27 03/30/17 20:00 Range/Units Urine Color YELLOW Urine Appearance CLOUDY CLEAR Urine pH 5.0 4.5-7.5 Urine Specific [place] 1.023 1.000-1.030 Urine Protein 1+ NEG Urine Glucose (UA) NEG NEG Urine Ketones TRACE NEG Urine Occult Blood 2+ NEG Urine Nitrite NEG NEG Urine Bilirubin NEG NEG Urine Urobilinogen NEG NEG Urine Leukocyte Esterase NEG NEG Urine Hyaline Casts (Auto) 0-5 /lpf Urine RBC 5-10 0-4 /hpf Urine WBC 1-5 0-5 /hpf Urine Epithelial Cells 10-20 0-5 /lpf Urine Bacteria NEG NEG Urine Hyaline Casts 5-10 0-5 /lpf Urine Granular Casts 5-10 0 /lpf Urine Pathogenic Casts 0 /lpf White Blood Count 4.93 4.8-10.8 K/uL Red Blood Count 3.62 4.7-6.1 M/uL Hemoglobin 6.4 14.0-18.0 g/dL Hematocrit 23.3 42-52 % Mean Corpuscular Volume 64.4 80-100 fL Mean Corpuscular Hemoglobin 17.7 25-34 pg Mean Corpuscular Hemoglobin Concent 27.5 32-36 g/dl Platelet Count 179 130-400 K/uL Mean Platelet Volume 9.1 7.4-10.4 fL Neutrophils (%) (Auto) 87.3 % Lymphocytes (%) (Auto) 9.7 % Monocytes (%) (Auto) 2.6 % Eosinophils (%) (Auto) 0.0 % Basophils (%) (Auto) 0.2 % Neutrophils # (Auto) 4.30 1.4-6.5 K/uL Lymphocytes # (Auto) 0.48 1.2-3.4 K/uL Monocytes # (Auto) 0.13 0.11-0.59 K/uL Eosinophils # (Auto) 0.00 0-0.5 K/uL Basophils # (Auto) 0.01 0-0.2 K/uL RDW Standard Deviation 45.6 36.4-46.3 fL RDW Coefficient of Variation 19.1 11.5-14.5 % Immature Granulocyte % (Auto) 0.2 % Immature Granulocyte # (Auto) 0.01 0.00-0.02 K/uL Blood Smear Review Large Platelets 1+ Giant Platelets 1+ Hypochromasia PRESENT Poikilocytosis PRESENT Microcytosis PRESENT Prothrombin Time 11.6 9.0-12.0 SECONDS Prothromb Time International Ratio 1.1 0.9-1.1 Activated Partial Thromboplast Time 29.5 21.0-31.0 SECONDS Partial Thromboplastin Ratio 1.1 Venous Blood pH 7.39 7.36-7.41 Venous Blood Partial Pressure CO2 45 38.0-50.0 mmHg Venous Blood Partial Pressure O2 20 mmHg Venous Blood HCO3 26 mmol/L Venous Blood Oxygen Saturation < 60.0 % Venous Blood Base Excess 1.2 mEq/L Sodium Level 136 136-145 mmol/L Potassium Level 3.8 3.5-5.1 mmol/L Chloride Level 105 98-107 mmol/L Carbon Dioxide Level 25 21-32 mmol/L Anion Gap 6.0 3-11 mmol/L Blood Urea Nitrogen 17 7-18 mg/dl Creatinine 0.95 0.60-1.40 mg/dl Est Creatinine Clear Calc Drug Dose 50.4 ml/min Estimated GFR () 85.5 Estimated GFR (Non- 73.7 BUN/Creatinine Ratio 18.3 10-20 Random Glucose 109 70-99 mg/dl Calcium Level 7.6 8.5-10.1 mg/dl Total Bilirubin 0.4 0.2-1 mg/dl Direct Bilirubin 0.1 0-0.2 mg/dl Aspartate Amino Transf (AST/SGOT) 99 15-37 U/L Alanine Aminotransferase (ALT/SGPT) 31 12-78 U/L Alkaline Phosphatase 49 45-117 U/L Total Creatine Kinase 1783 39-308 U/L Creatine Kinase MB 2.0 0.5-3.6 ng/ml Creatine Kinase MB Ratio 0.1 0-3.0 Troponin I 0.112 0-0.045 ng/ml Total Protein 6.4 6.4-8.2 gm/dl Albumin 3.0 3.4-5.0 gm/dl Lipase 53 73-393 U/L Bedside Lactic Acid Venous 1.64 0.90-1.70 mmol/L Influenza Type A Antigen Neg for Influ A NEG Influenza Type B Antigen Neg for Influ B NEG Test 03/31/17 04:55 03/31/17 05:28 Range/Units White Blood Count 5.17 4.8-10.8 K/uL Red Blood Count 4.16 4.7-6.1 M/uL Hemoglobin 8.3 14.0-18.0 g/dL Hematocrit 28.7 42-52 % Mean Corpuscular Volume 69.0 80-100 fL Mean Corpuscular Hemoglobin 20.0 25-34 pg Mean Corpuscular Hemoglobin Concent 28.9 32-36 g/dl RDW Standard Deviation 54.9 36.4-46.3 fL RDW Coefficient of Variation 21.7 11.5-14.5 % Platelet Count 145 130-400 K/uL Platelet Estimate NORMAL Sodium Level 138 136-145 mmol/L Potassium Level 4.0 3.5-5.1 mmol/L Chloride Level 104 98-107 mmol/L Carbon Dioxide Level 27 21-32 mmol/L Anion Gap 7.0 3-11 mmol/L Blood Urea Nitrogen 16 7-18 mg/dl Creatinine 0.80 0.60-1.40 mg/dl Est Creatinine Clear Calc Drug Dose 58.4 ml/min Estimated GFR () 95.7 Estimated GFR (Non- 82.6 BUN/Creatinine Ratio 20.3 10-20 Random Glucose 134 70-99 mg/dl Calcium Level 7.8 8.5-10.1 mg/dl Total Creatine Kinase 1523 39-308 U/L Troponin I 0.095 0-0.045 ng/ml Procalcitonin 1.33 0-0.5 ng/ml Microbiology Results 03/30/17 Blood Culture, Received Pending 03/30/17 Blood Culture, Received Pending 03/30/17 Urine Culture, Received Pending
[2017-03-31] MEDS: ALBUT/IPRATROP 3MG/0.5MG NEB 3 ML VIAL INH PRN (16:36)
[2017-03-31] MEDS ORDERED: LEVOFLOXACIN / D5W 500 MG in PREMIXED IN D5W 100 ML IV SCH (20:00)
[2017-03-31] MEDS ORDERED: NURSING VERBAL MED ORDER ONE (23:45)
[2017-03-31] MEDS ORDERED: ACETAMINOPHEN 325 MG TAB PO PRN (23:45)
[2017-04-01] VITALS (8 sets, daily range): BP systolic 125–151; BP diastolic 61–79; PULSE 73–107; TEMP 36.4–36.8; O2SAT 96–98
[2017-04-01] MEDS: VANCOMYCIN INJ 750 MG in SODIUM CHLORIDE 0.9% 250ML 250 ML IV SCH ×2 (00:02→14:02)
[2017-04-01 06:16] LABS: MEAN CORPUSCULAR HGB CONC 29.2 g/dl (32-36)
[2017-04-01 06:44] LABS: HEMATOCRIT 28.1 % (42-52); MEAN CELL VOLUME 69.2 fL (80-100); MEAN CORPUSCULAR HEMOGLOBIN 20.2 pg (25-34); RED BLOOD COUNT 4.06 M/uL (4.7-6.1); WHITE BLOOD COUNT 3.89 K/uL (4.8-10.8)
[2017-04-01 06:49] LABS: PLATELET COUNT 117 K/uL (130-400); PLT ESTIMATE DECREASED
[2017-04-01 06:55] LABS: CALCIUM 7.5 mg/dl (8.5-10.1); CREATININE 0.7 mg/dl (0.60-1.40); MAGNESIUM 2.1 mg/dl (1.8-2.4); POTASSIUM 3.3 mmol/L (3.5-5.1)
[2017-04-01] MEDS: DOCUSATE SODIUM 100 MG CAP PO SCH (08:26)
[2017-04-01] MEDS: PANTOprazole SOD 40 MG TAB PO SCH (08:26)
[2017-04-01] MEDS: MULTIVITAMIN TAB PO SCH (08:26)
[2017-04-01] MEDS: CITALOPRAM 20 MG TAB PO SCH (08:26)
[2017-04-01] MEDS: ALBUT/IPRATROP 3MG/0.5MG NEB 3 ML VIAL INH PRN (08:28)
--- NOTE | 2017-04-01 09:42 | Progress Note ---
Internal Med Progress Note Date of Service: Apr 01, 2017. Provider Documentation: SUBJECTIVE: Seen and examined at bedside Reports mild cough Anxious and SOB this morning but resolved Patient prefers to be discharged home Mental status back to baseline Discussed with patient's Nephew/Patient: No aggressive measures per patient's wishes Prefers no blood transfusions in future Denies chest pain, SOB, abd pain, dizziness currently Reports feeling dizzy and had fell hitting his head prior to admission but prefers no Head CT OBJECTIVE: Vital Signs-as noted below Physical Exam: General Appearance:Thin, chronic ill appearing, no apparent distress Head: normocephalic, Atraumatic Eyes: normal inspection, EOMI, PERRL Neck: supple, Trachea midline Respiratory/Chest: Normal breath sounds, CTA Cardiovascular: S1, S2, No murmur Abdomen/GI:Soft, Non tender, Bowel sounds present Extremities/Musculoskelatal:normal inspection, no edema Neurologic/Psych:grossly no focal neurological deficits Skin: normal color, warm Lab data as noted below. ASSESSMENT & PLAN: Probable Sepsis SIRS Present with fever, tachycardia, Altered mental status and hypotension in the ER WBC and lactic acid normal Received Vanco, Levaquin in the ER Blood cx and urine cx: No growth to date Received empiric Vanco and levaquin for 2 days Start on Doxycycline as peripheral blood smear showed anaplasmosis Serology for Anaplasmosis, ehrlichiosis pending flu negative Likely Metabolic Encephalopathy mental status back to baseline H/O fall resulting in head trauma secondary to dizziness while lifting a box prior to admission per patient No aggressive measures as per patient and family Refused CT head continue monitor Elevated troponin Levels trending down Denies any chest pain EKG: sinus tachy, Nonspecific ST and T wave abnormality hold asa due to Anemia No aggressive management per patient/family Anemia/Thrombocytopenia had a episode of GI bleed 2 weeks ago No acute bleeding issues Hgb 6.4>>>>8.3>>>8.2 S/P 2 units PRBCs Pt does want any EGD and colonoscopy Monitor Hb hold aspirin Discussed with patient and family: Prefers no future blood transfusions Microhematuria on urine analysis Mild Rhabdo CK level [id number]>>>[id number]>>>[id number] DC IVF COPD CXR showed Emphysema without acute cardiopulmonary process. Received solumedrol 125 mg Continue oxygen supplement and Duoneb No signs of exacerbation DVT px SCD due to anemia CODE STATUS DNR/DNI Pt has been on hospice for 2 yrs Disposition Consulted social services assistant/palliative care Vital Signs: Date Time Temp Pulse Resp B/P (MAP) Pulse Ox O2 Delivery O2 Flow Rate FiO2 04/01/17 08:28 93 18 96 Nasal Cannula 2.0 04/01/17 07:39 36.8 89 20 151/72 (98) 97 2.0 04/01/17 05:26 Nasal Cannula 2.0 04/01/17 03:40 36.8 73 18 125/61 (82) 98 Nasal Cannula 2.0 04/01/17 00:00 Nasal Cannula 2.0 03/31/17 23:55 36.9 77 18 120/63 (82) 98 Nasal Cannula 2.0 03/31/17 20:29 36.7 91 18 144/71 (95) 92 Nasal Cannula 2.0 03/31/17 20:00 Nasal Cannula 2.0 03/31/17 16:37 72 18 93 Nasal Cannula 2.0 03/31/17 16:07 36.6 83 20 127/76 (93) 94 Nasal Cannula 2.0 03/31/17 16:05 Nasal Cannula 2.0 03/31/17 12:00 Nasal Cannula 2.0 03/31/17 11:25 36.4 71 18 131/61 (84) 94 Nasal Cannula 2.0 Lab Results: Results Past 24 Hours Test 03/31/17 14:05 04/01/17 05:54 Range/Units Troponin I 0.086 0-0.045 ng/ml White Blood Count 3.89 4.8-10.8 K/uL Red Blood Count 4.06 4.7-6.1 M/uL Hemoglobin 8.2 14.0-18.0 g/dL Hematocrit 28.1 42-52 % Mean Corpuscular Volume 69.2 80-100 fL Mean Corpuscular Hemoglobin 20.2 25-34 pg Mean Corpuscular Hemoglobin Concent 29.2 32-36 g/dl RDW Standard Deviation 56.0 36.4-46.3 fL RDW Coefficient of Variation 22.2 11.5-14.5 % Platelet Count 117 130-400 K/uL Platelet Estimate DECREASED Sodium Level 138 136-145 mmol/L Potassium Level 3.3 3.5-5.1 mmol/L Chloride Level 106 98-107 mmol/L Carbon Dioxide Level 25 21-32 mmol/L Anion Gap 7.0 3-11 mmol/L Blood Urea Nitrogen 19 7-18 mg/dl Creatinine 0.70 0.60-1.40 mg/dl Est Creatinine Clear Calc Drug Dose 67.6 ml/min Estimated GFR () 101.2 Estimated GFR (Non- 87.3 BUN/Creatinine Ratio 27.0 10-20 Random Glucose 83 70-99 mg/dl Calcium Level 7.5 8.5-10.1 mg/dl Magnesium Level 2.1 1.8-2.4 mg/dl Total Creatine Kinase 497 39-308 U/L
[2017-04-01] MEDS ORDERED: POTASSIUM CHLORIDE 10 MEQ TABCR PO ONE (09:45)
[2017-04-01] MEDS ORDERED: VANCOMYCIN TROUGH ONE (13:30)
--- NOTE | 2017-04-01 14:11 | Pharmacy Progress Note ---
Pharmacy Abx Dose Short Note Date of Service Apr 01, 2017. Assessment & Plan Item Value Date Time Vancomycin Level Trough 12.4 mcg/ml 04/01/17 1314 Assessment 81 year old male receiving IV Vancomycin and Levaquin empirically x 48 hours for treatment of sepsis Day # 2/2 of antimicrobial therapy. Patient started on PO Doxycycline 100mg BID today. Plan Vancomycin * Trough level of 12.4 mcg/mL is slightly subtherapeutic * No further dosing at this time, patient received last dose at 1400 today for 48 hours empiric therapy * Continue Doxycycline 100mg PO BID * Pharmacy consult complete. Thank you.
[2017-04-01] MEDS: DOXYCYCLINE HYCLATE 100 MG CAP PO SCH (19:33)
[2017-04-02] VITALS: O2SAT 96
[2017-04-02 07:12] LABS: MEAN CORPUSCULAR HGB CONC 29.8 g/dl (32-36)
[2017-04-02 07:17] LABS: HEMATOCRIT 30.2 % (42-52); MEAN CELL VOLUME 68.6 fL (80-100); MEAN CORPUSCULAR HEMOGLOBIN 20.5 pg (25-34); WHITE BLOOD COUNT 4.44 K/uL (4.8-10.8)
[2017-04-02 07:19] VITALS: BP 140/90; PULSE 81; TEMP 36.5; O2SAT 96
[2017-04-02 07:47] LABS: BUN/CREATININE RATIO 18.2 (10-20); CALCIUM 7.7 mg/dl (8.5-10.1); CREATININE 0.6 mg/dl (0.60-1.40); POTASSIUM 3.5 mmol/L (3.5-5.1)
[2017-04-02 08:23] LABS: PLATELET COUNT 110 K/uL (130-400); PLT ESTIMATE DECREASED
[2017-04-02 08:45] VITALS: O2SAT 98
[2017-04-02] MEDS: CITALOPRAM 20 MG TAB PO SCH (08:46)
[2017-04-02] MEDS: MULTIVITAMIN TAB PO SCH (08:46)
[2017-04-02] MEDS: PANTOprazole SOD 40 MG TAB PO SCH (08:46)
[2017-04-02] MEDS: DOXYCYCLINE HYCLATE 100 MG CAP PO SCH ×2 (08:46→20:00)
[2017-04-02] MEDS: DOCUSATE SODIUM 100 MG CAP PO SCH (08:46)
--- NOTE | 2017-04-02 11:58 | Palliative Care Consultation ---
Consultation Date of Consultation: Apr 02, 2017. Requesting Physician: Dr. Marshall Attending Physician: Dr. Lincoln Reason for Consultation: Goals of care History of Present Illness This 81 year old male patient with PMH COPD, AAA, mild dementia, and others listed below, presented to the hospital over the weekend after being found on the floor at home. This patient has been on home hospice for quite some time, reportedly two years. Up to this point, patient has been living home alone. Upon arrival, patient had hgb 6.4, elevated troponin. Per record, nephew recalled that patient had a bloody BM a week or so ago. He received two units of blood, is admitted to the medical unit. Patient is now more oriented and back to his baseline. He and his nephew/POA, Shannan Cherry, state the patient does not want any medical treatment other than comfort measures only.Palliative care consulted. I met with the patient in room 418, spoke with Shannan (nephew/POA) on phone twice. Patient is hard of hearing, but awake, alert and oriented x4. He states that he fell at home and was unable to get up. Finally, hospice nurse found him on the floor and he came to hospital. He was confused when he came in, but feels back to normal now. Nursing reports that he has been able to ambulate with minimal assistance to the bathroom. Patient wants to go home on hospice. He does not want to be in the hospital, does not want to come back to the hospital for any reason at all. His wish is to at home. I expressed our concern about him living alone, he said he will talk to his nephew about increasing care. When I spoke to Shannan on phone, he said that patient has a woman who comes to the home to clean and check on patient three times a week, he will see if that can be increased. Shannan was also planning to be with patient sometimes on the weekends. I did discuss with Shannan that if patient cannot care for himself and they are unable to have people be with him, he may need to go to SNF. Shannan was agreeable and wants what's safest for patient. Patient and I completed a POLST form as follows: DNR, comfort measures only, NO lab work, NO blood transfusions, abx with comfort as the goal, no artificial hydration/nutrition. Past Medical/Surgical History Medical History: COPD AAA s/p rupture and repair Dementia, mild CVA Poor functional status Weakness/falls Social History Smoking Status: Former Smoker History of Alcohol Use: Yes Drug Use: none Marital Status: Occupation Status: retired Review of Systems Constitutional: + weakness ENT: No trouble swallowing Respiratory: + dyspnea on exertion, No cough, No shortness of breath Cardiac: No chest pain, No edema Abdomen: No pain, No nausea, No vomiting Male : No problem reported Psychiatric: No depression symptoms, No anxiety Allergies Coded Allergies: No Known Allergies (Verified , 03/30/17) Medications Current Inpatient Medications Medications (Trade) Dose Ordered Sig/Al Route Start Time Stop Time Status Last Admin Dose Admin Citalopram Hydrobromide (celeXA TAB) 10 mg DAILY PO 03/31/17 09:00 04/30/17 08:59 04/02/17 08:46 10 MG Docusate Sodium (coLACE CAP) 100 mg DAILY PO 03/31/17 09:00 04/30/17 08:59 04/02/17 08:46 100 MG Hydroxyzine HCl (Vistaril Tab) 10 mg Q6 PRN PO 03/31/17 04:30 04/30/17 04:29 Multivitamins (Multivitamin Tab) 1 tab DAILY PO 03/31/17 09:00 04/30/17 08:59 04/02/17 08:46 1 TAB Albuterol (Proair Hfa) 1 puffs Q4 PRN INH 03/31/17 04:30 04/30/17 04:29 Pantoprazole Sodium (Protonix Tab) 40 mg DAILY PO 03/31/17 09:00 04/30/17 08:59 04/02/17 08:46 40 MG Albuterol/ Ipratropium (Duoneb) 3 ml Q4R PRN INH 03/31/17 04:30 04/30/17 04:29 04/01/17 08:28 3 ML Acetaminophen (Tylenol Tab) 650 mg Q4H PRN PO 03/31/17 23:45 04/30/17 23:44 04/01/17 00:02 650 MG Doxycycline Hyclate (Vibramycin Cap) 100 mg BID PO 04/01/17 20:00 04/08/17 20:59 04/02/17 08:46 100 MG Physical Exam Date Time Temp Pulse Resp B/P (MAP) Pulse Ox O2 Delivery O2 Flow Rate FiO2 04/02/17 08:45 98 Nasal Cannula 2.0 04/02/17 07:19 36.5 81 20 140/90 (107) 96 Nasal Cannula 2.0 04/02/17 00:00 96 Nasal Cannula 2.0 04/01/17 23:31 36.7 86 18 127/72 (90) 96 2.0 04/01/17 16:00 Nasal Cannula 2.0 04/01/17 15:48 36.6 98 16 131/68 (89) 96 Nasal Cannula 2.0 04/01/17 13:27 36.4 107 22 126/71 (89) 96 2.0 04/01/17 12:33 36.4 93 20 97 2.0 General Appearance: no apparent distress, + thin (deconditioned), + pertinent finding (chronically ill-appearing) ENT: + pertinent finding (very hard of hearing) Neck: supple, no JVD Respiratory: no respiratory distress, no accessory muscle use Cardiovascular: regular rate, rhythm, no edema Abdomen: non tender, soft Neurologic/Psychiatric: alert, normal mood/affect, oriented x 3 Skin: + pallor Laboratory Results Last 24 Hours Test 04/01/17 13:14 04/02/17 06:40 Vancomycin Level Trough 12.4 mcg/ml White Blood Count 4.44 K/uL Red Blood Count 4.40 M/uL Hemoglobin 9.0 g/dL Hematocrit 30.2 % Mean Corpuscular Volume 68.6 fL Mean Corpuscular Hemoglobin 20.5 pg Mean Corpuscular Hemoglobin Concent 29.8 g/dl RDW Standard Deviation 57.0 fL RDW Coefficient of Variation 22.7 % Platelet Count 110 K/uL Platelet Estimate DECREASED Sodium Level 138 mmol/L Potassium Level 3.5 mmol/L Chloride Level 103 mmol/L Carbon Dioxide Level 25 mmol/L Anion Gap 10.0 mmol/L Blood Urea Nitrogen 11 mg/dl Creatinine 0.60 mg/dl Est Creatinine Clear Calc Drug Dose 78.6 ml/min Estimated GFR () 107.8 Estimated GFR (Non- 93.0 BUN/Creatinine Ratio 18.2 Random Glucose 80 mg/dl Calcium Level 7.7 mg/dl Magnesium Level 2.0 mg/dl Assessment & Plan Palliative Performance Scale: 40 % Problem list: Weakness Fall Failure to thrive Confusion- resolved. Mild cognitive dysfunction/dementia at baseline per record and nephew. Anemia- received two units of blood Elevated troponin COPD, advanced. On 2LNC continuously at home Rhabdomyolysis Possible sepsis Goals of care (Z51.5) Palliative care recs: discussed with patient, patient's nephew, Dr. Lincoln. -Patient is comfort measures only. He does not want lab draws or any further blood transfusions. -He is level 5/DNR. -Patient and I completed a POLST form as follows: DNR, comfort measures only, NO lab work, NO blood transfusions, abx with comfort as the goal, no artificial hydration/nutrition. Signed by patient. -Patient is of sound mind, and his wish is to go home with hospice. If care can be increased at home, can go home with hospice. Nephew states he could try and get care increased. -I did express my concern to the patient and his nephew about patient being home alone. They both understood. patient is adamant about being at home. -If he cannot go home, will need SNF. Patient is NOT interested in doing any PT/ OT. Thank you kindly for this consult. Please contact me with any further palliative care needs.
[2017-04-02 12:29] VITALS: BP 140/90; PULSE 81; TEMP 36.5; O2SAT 98
--- NOTE | 2017-04-02 13:28 | Progress Note ---
Internal Med Progress Note Date of Service: Apr 02, 2017. Provider Documentation: SUBJECTIVE: Seen and examined at bedside Less cough Patient is upset that he is not being discharged home Discussed with palliative care/case management Patient unable to take care of himself, high risk for fall, may need halfway placement with hospice services Mental status back to baseline Denies chest pain, SOB, abd pain, dizziness OBJECTIVE: Vital Signs-as noted below Physical Exam: General Appearance:Thin, chronic ill appearing, no apparent distress Head: normocephalic, Atraumatic Eyes: normal inspection, EOMI, PERRL Neck: supple, Trachea midline Respiratory/Chest: Normal breath sounds, CTA Cardiovascular: S1, S2, No murmur Abdomen/GI:Soft, Non tender, Bowel sounds present Extremities/Musculoskelatal:normal inspection, no edema Neurologic/Psych:grossly no focal neurological deficits Skin: normal color, warm Lab data as noted below. ASSESSMENT & PLAN: Probable Sepsis SIRS Present with fever, tachycardia, Altered mental status and hypotension in the ER WBC and lactic acid normal Received Vanco, Levaquin in the ER Blood cx and urine cx: No growth to date Received empiric Vanco and levaquin for 2 days Continue Doxycycline Day # 2; as peripheral blood smear showed anaplasmosis Serology for Anaplasmosis, ehrlichiosis pending flu negative Likely Metabolic Encephalopathy mental status back to baseline H/O fall resulting in head trauma secondary to dizziness while lifting a box prior to admission per patient No aggressive measures as per patient and family Refused CT head continue monitor Elevated troponin Levels trending down Denies any chest pain EKG: sinus tachy, Nonspecific ST and T wave abnormality hold asa due to Anemia No aggressive management per patient/family Anemia/Thrombocytopenia had a episode of GI bleed 2 weeks ago No acute bleeding issues Hgb 6.4>>>>8.3>>>8.2 S/P 2 units PRBCs Pt does want any EGD and colonoscopy Monitor Hb hold aspirin Discussed with patient and family: Prefers no future blood transfusions Microhematuria on urine analysis Discussed with palliative care: patient prefers no lab work Mild Rhabdo CK level [id number]>>>[id number] DC IVF COPD CXR showed Emphysema without acute cardiopulmonary process. Received solumedrol 125 mg Continue oxygen supplement and Duoneb No signs of exacerbation DVT px SCD due to anemia CODE STATUS DNR/DNI Pt has been on hospice for 2 yrs Disposition Appreciate palliative care/case management Input Patient is unable to care of himself currently and has high risk for fall Planned to be discharged to alf with hospice in place if Nephew agreeable Vital Signs: Date Time Temp Pulse Resp B/P (MAP) Pulse Ox O2 Delivery O2 Flow Rate FiO2 04/02/17 12:29 36.5 81 20 98 Nasal Cannula 04/02/17 08:45 98 Nasal Cannula 2.0 04/02/17 07:19 36.5 81 20 140/90 (107) 96 Nasal Cannula 2.0 04/02/17 00:00 96 Nasal Cannula 2.0 04/01/17 23:31 36.7 86 18 127/72 (90) 96 2.0 04/01/17 16:00 Nasal Cannula 2.0 04/01/17 15:48 36.6 98 16 131/68 (89) 96 Nasal Cannula 2.0 04/01/17 13:27 36.4 107 22 126/71 (89) 96 2.0 Lab Results: Results Past 24 Hours Test 04/02/17 06:40 Range/Units White Blood Count 4.44 4.8-10.8 K/uL Red Blood Count 4.40 4.7-6.1 M/uL Hemoglobin 9.0 14.0-18.0 g/dL Hematocrit 30.2 42-52 % Mean Corpuscular Volume 68.6 80-100 fL Mean Corpuscular Hemoglobin 20.5 25-34 pg Mean Corpuscular Hemoglobin Concent 29.8 32-36 g/dl RDW Standard Deviation 57.0 36.4-46.3 fL RDW Coefficient of Variation 22.7 11.5-14.5 % Platelet Count 110 130-400 K/uL Platelet Estimate DECREASED Sodium Level 138 136-145 mmol/L Potassium Level 3.5 3.5-5.1 mmol/L Chloride Level 103 98-107 mmol/L Carbon Dioxide Level 25 21-32 mmol/L Anion Gap 10.0 3-11 mmol/L Blood Urea Nitrogen 11 7-18 mg/dl Creatinine 0.60 0.60-1.40 mg/dl Est Creatinine Clear Calc Drug Dose 78.6 ml/min Estimated GFR () 107.8 Estimated GFR (Non- 93.0 BUN/Creatinine Ratio 18.2 10-20 Random Glucose 80 70-99 mg/dl Calcium Level 7.7 8.5-10.1 mg/dl Magnesium Level 2.0 1.8-2.4 mg/dl
[2017-04-02 14:41] VITALS: BP 130/65; PULSE 78; TEMP 36.8; O2SAT 95
[2017-04-03] VITALS (7 sets, daily range): BP systolic 130–153; BP diastolic 72–81; PULSE 91–99; TEMP 36.3–36.6; O2SAT 97–99
--- NOTE | 2017-04-03 08:44 | Clinical Documentation Query ---
ALEXIS Sanchez : CLINICAL DOCUMENTATION QUERIES QUERY 1 OF 2 Patient is an 81 year old male admitted for evaluation and treatment of an altered mental status and weakness. H&P noted report of bloody BM about 2 weeks prior to admission. Admission H&H was 6.4 g/dl and 23.3%. Post transfusion of two units of PRBC's, values yesterday a.m. were 9.9 g/dl and 30.2%. Although no current/ongoing bleeding observed, this still may represent an anemia secondary to acute blood loss. Please clarify as clinically appropriate. Thank you. In your clinical opinion is this patient being managed for: ( ) Acute blood loss anemia ( ) Not Agree ( ) Other explanation of clinical findings (Please Explain) ( ) Unable to determine (Please Define) ( ) Need to Discuss The medical record reflects the following clinical findings, treatment, and risk factors. Clinical Indicators: As above Treatment: Transfusion of PRBC's, serial hematology, hold ASA Risk Factors: Age, ASA QUERY 2 OF 2 H&P notes continuous use of supplemental oxygen therapy. As appropriate, consider documentation as suggested below. Thank you. In your clinical opinion is this patient being managed for: ( ) Chronic respiratory failure with hypoxia ( ) Not Agree ( ) Other explanation of clinical findings (Please Explain) ( ) Unable to determine (Please Define) ( ) Need to Discuss The medical record reflects the following clinical findings, treatment, and risk factors. Clinical Indicators: As above Treatment: Ongoing provision of supplemental O2 Risk Factors: Age, smoking history/COPD Please clarify and document your clinical opinion in the progress notes and discharge summary. Terms such as "probable", "suspected", "likely", "questionable", "possible", or "still to be ruled out" are acceptable. IF IN AGREEMENT, YOU MUST DOCUMENT ABOVE DIAGNOSTIC STATEMENT IN DAILY PROGRESS NOTES AND DISCHARGE SUMMARY. This document is not part of the patient's record. Thank You, Mook Lux RN [phone]
[2017-04-03] MEDS: DOCUSATE SODIUM 100 MG CAP PO SCH (08:45)
[2017-04-03] MEDS: MULTIVITAMIN TAB PO SCH (08:46)
[2017-04-03] MEDS: DOXYCYCLINE HYCLATE 100 MG CAP PO SCH ×2 (08:46→20:00)
[2017-04-03] MEDS: CITALOPRAM 20 MG TAB PO SCH (08:46)
[2017-04-03] MEDS: PANTOprazole SOD 40 MG TAB PO SCH (08:46)
--- NOTE | 2017-04-03 11:04 | Progress Note ---
Internal Med Progress Note Date of Service: Apr 03, 2017. Provider Documentation: SUBJECTIVE: Seen and examined at bedside Eager to get discharged Mental status back to baseline Denies chest pain, SOB, dizziness No family at bedside OBJECTIVE: Vital Signs-as noted below Physical Exam: General Appearance:Thin, chronic ill appearing, no apparent distress Head: normocephalic, Atraumatic Eyes: normal inspection, EOMI, PERRL Neck: supple, Trachea midline Respiratory/Chest: Normal breath sounds, CTA Cardiovascular: S1, S2, No murmur Abdomen/GI:Soft, Non tender, Bowel sounds present Extremities/Musculoskelatal:normal inspection, no edema Neurologic/Psych:grossly no focal neurological deficits Skin: normal color, warm Lab data as noted below. ASSESSMENT & PLAN: Probable Sepsis SIRS Present with fever, tachycardia, Altered mental status and hypotension in the ER WBC and lactic acid normal Received Vanco, Levaquin in the ER Blood cx and urine cx: No growth to date Received empiric Vanco and levaquin for 2 days Continue Doxycycline Day # 3; as peripheral blood smear showed anaplasmosis Serology for Anaplasmosis, ehrlichiosis pending flu negative Likely Metabolic Encephalopathy: Resolved mental status back to baseline H/O fall resulting in head trauma secondary to dizziness while lifting a box prior to admission per patient No aggressive measures as per patient and family Refused CT head continue monitor Elevated troponin Levels trending down Denies any chest pain EKG: sinus tachy, Nonspecific ST and T wave abnormality hold asa due to Anemia No aggressive management per patient/family Anemia/Thrombocytopenia had a episode of GI bleed 2 weeks ago No acute bleeding issues Hgb 6.4>>>>8.3>>>8.2 S/P 2 units PRBCs Pt does want any EGD and colonoscopy Monitor Hb hold aspirin Discussed with patient and family: Prefers no future blood transfusions Microhematuria on urine analysis Discussed with palliative care: patient prefers no lab work Mild Rhabdo CK level [id number] DC IVF COPD CXR showed Emphysema without acute cardiopulmonary process. Received solumedrol 125 mg Continue oxygen supplement and Duoneb No signs of exacerbation DVT px SCD due to anemia CODE STATUS DNR/DNI Pt has been on hospice for 2 yrs Disposition Appreciate palliative care/case management Input Patient prefers to be discharged home but is unsafe as he is high risk for fall Also refusing PT currently Patient prefers to be discharged home. Discussed with POA. Planned to meet case management today and make a decision regarding placement Follow up with on 04/06/17 at 11:05 Am Vital Signs: Date Time Temp Pulse Resp B/P (MAP) Pulse Ox O2 Delivery O2 Flow Rate FiO2 04/03/17 11:26 36.6 99 16 142/81 (101) 99 Nasal Cannula 2.0 04/03/17 10:21 98 Nasal Cannula 2.0 04/03/17 09:21 98 Nasal Cannula 2.0 04/03/17 08:01 36.3 91 18 130/75 (93) 99 Nasal Cannula 2.0 04/03/17 00:38 36.6 99 22 148/72 (97) 98 Nasal Cannula 1.5 04/03/17 00:00 Nasal Cannula 2.0 04/02/17 16:00 Nasal Cannula 2.0 04/02/17 14:41 36.8 78 20 130/65 (86) 95 Nasal Cannula 2.0 04/02/17 12:29 36.5 81 20 98 Nasal Cannula
[2017-04-04 07:15] VITALS: BP 132/72; PULSE 94; TEMP 36.2; O2SAT 93
[2017-04-04] MEDS: DOXYCYCLINE HYCLATE 100 MG CAP PO SCH ×2 (08:25→19:50)
[2017-04-04] MEDS: DOCUSATE SODIUM 100 MG CAP PO SCH (08:25)
[2017-04-04] MEDS: CITALOPRAM 20 MG TAB PO SCH (08:26)
[2017-04-04] MEDS: MULTIVITAMIN TAB PO SCH (08:27)
[2017-04-04] MEDS: PANTOprazole SOD 40 MG TAB PO SCH (08:27)
[2017-04-04 09:40] VITALS: O2SAT 98
[2017-04-04 15:19] VITALS: BP 124/68; PULSE 95; TEMP 36.9; O2SAT 99
--- NOTE | 2017-04-04 18:22 | Progress Note ---
Medicine Progress Note Date & Time of Visit: Apr 04, 2017 at 18:16. Subjective patient seen resting in bed, comfortable denies any pain, dyspnea, nausea no other symptoms eager for discharge home Objective Last 8 Hrs Date Time Temp Pulse Resp B/P (MAP) Pulse Ox O2 Delivery O2 Flow Rate FiO2 04/04/17 16:00 Nasal Cannula 2.0 04/04/17 15:19 36.9 95 20 124/68 (86) 99 Nasal Cannula 2.0 Physical Exam: General- oriented x 3, not in distress, speaks in sentences with no effort Head- atraumatic Eyes- anicteric ENT- oropharynx clear Neck- supple, no JVD Lungs- clear to auscultation bilaterally Heart- regular rhythm; no murmur, normal rate Abdomen- normal bowel sounds, soft, nontender Extremities- no pretibial edema, no calf tenderness Neuro- alert, oriented x 3;no gross focal deficits Skin- warm & dry Assessment & Plan Probable Sepsis, possible Anaplasmosis Present with fever, tachycardia, Altered mental status and hypotension in the ER Blood cx and urine cx: No growth to date Received empiric Vanco and levaquin for 2 days Continue on Doxycycline Day # 4; as peripheral blood smear showed anaplasmosis Serology for Anaplasmosis, ehrlichiosis pending flu negative -- stable overall would still to continue Doxycycline declines bloodwork -- would like to be discharged home with hospice Palliative Care Service on board, appreciate the recommendations Likely Metabolic Encephalopathy: Resolved mental status back to baseline H/O fall resulting in head trauma secondary to dizziness while lifting a box prior to admission per patient declined CT head Elevated troponin Levels trending down Denies any chest pain EKG: sinus tachy, Nonspecific ST and T wave abnormality hold asa due to Anemia No aggressive management per patient/family Anemia/Thrombocytopenia had a episode of GI bleed 2 weeks ago No acute bleeding issues Hgb 6.4>>>>8.3>>>8.2 S/P 2 units PRBCs Pt does want any EGD and colonoscopy hold aspirin Discussed with patient and family: Prefers no future blood transfusions Mild Rhabdo CK level [id number] given IV fluids COPD CXR showed Emphysema without acute cardiopulmonary process. Continue oxygen supplement and Duoneb No signs of exacerbation DVT px SCD due to anemia CODE STATUS DNR/DNI Pt has been on hospice for 2 yrs Plan to return home with hospice once accepted , likely tomorrow per case management Disposition Follow up with on 04/06/17 at 11:05 Am Current Inpatient Medications: Current Inpatient Medications Medications (Trade) Dose Ordered Sig/Al Route Start Time Stop Time Status Last Admin Dose Admin Citalopram Hydrobromide (celeXA TAB) 10 mg DAILY PO 03/31/17 09:00 04/30/17 08:59 04/04/17 08:26 10 MG Docusate Sodium (coLACE CAP) 100 mg DAILY PO 03/31/17 09:00 04/30/17 08:59 04/04/17 08:25 100 MG Hydroxyzine HCl (Vistaril Tab) 10 mg Q6 PRN PO 03/31/17 04:30 04/30/17 04:29 Multivitamins (Multivitamin Tab) 1 tab DAILY PO 03/31/17 09:00 04/30/17 08:59 04/04/17 08:27 1 TAB Albuterol (Proair Hfa) 1 puffs Q4 PRN INH 03/31/17 04:30 04/30/17 04:29 Pantoprazole Sodium (Protonix Tab) 40 mg DAILY PO 03/31/17 09:00 04/30/17 08:59 04/04/17 08:27 40 MG Albuterol/ Ipratropium (Duoneb) 3 ml Q4R PRN INH 03/31/17 04:30 04/30/17 04:29 04/01/17 08:28 3 ML Acetaminophen (Tylenol Tab) 650 mg Q4H PRN PO 03/31/17 23:45 04/30/17 23:44 04/01/17 00:02 650 MG Doxycycline Hyclate (Vibramycin Cap) 100 mg BID PO 04/01/17 20:00 04/08/17 20:59 04/04/17 08:25 100 MG
[2017-04-04 23:52] VITALS: BP 122/69; PULSE 93; TEMP 36.8; O2SAT 97
[2017-04-05 07:58] VITALS: BP 124/68; PULSE 90; TEMP 36.7; O2SAT 98
[2017-04-05] MEDS: DOCUSATE SODIUM 100 MG CAP PO SCH (08:55)
[2017-04-05] MEDS: CITALOPRAM 20 MG TAB PO SCH (08:55)
[2017-04-05] MEDS: MULTIVITAMIN TAB PO SCH (08:56)
[2017-04-05] MEDS: DOXYCYCLINE HYCLATE 100 MG CAP PO SCH ×2 (08:56→20:21)
[2017-04-05] MEDS: PANTOprazole SOD 40 MG TAB PO SCH (08:56)
[2017-04-05 11:45] VITALS: BP 120/60; PULSE 97; TEMP 36.5; O2SAT 97
[2017-04-05 15:32] VITALS: BP 124/64; PULSE 91; TEMP 37; O2SAT 98
[2017-04-05 19:32] LABS: ANAPLASMA PHAGOCYTOPHIL IGM <1:20 (<1:20); ANAPLASMA PHAGOCYTOPHIL INTERP Past Infection; EHRLICHIA CHAFF IGM AB <1:20 (<1:20); EHRLICHIA CHAFF INTERPRET Past Infection
--- NOTE | 2017-04-05 19:48 | Progress Note ---
Medicine Progress Note Date & Time of Visit: Apr 05, 2017 at 19:45. Subjective patient seen resting in bedside chair, comfortable in good spirits states he feels ok overall denies pain, dyspnea, chest pain, nausea no other symptoms eager to go home Objective Last 8 Hrs Date Time Temp Pulse Resp B/P (MAP) Pulse Ox O2 Delivery O2 Flow Rate FiO2 04/05/17 16:00 Nasal Cannula 2.0 04/05/17 15:32 37.0 91 18 124/64 (84) 98 Nasal Cannula 2.0 Physical Exam: General- oriented x 3, not in distress, speaks in sentences with no effort ENT- oropharynx clear Neck- no JVD Lungs- clear breath sounds bilaterally, no rales/wheezes Heart- regular rhythm; no murmur, normal rate Abdomen- normal bowel sounds, soft, nontender Extremities- no pretibial edema, no calf tenderness Neuro- alert, oriented x 3;no gross focal deficits Skin- warm & dry Laboratory Results: Last 24 Hours Test 04/05/17 19:43 Assessment & Plan Probable Sepsis, possible Anaplasmosis Present with fever, tachycardia, Altered mental status and hypotension in the ER Blood cx and urine cx: No growth to date Received empiric Vanco and levaquin for 2 days -- peripheral blood smear showed anaplasmosis Anaplasmosis serology (+) past infection on Doxycycline Day # 5; improving clinically flu negative -- stable overall continue Doxycycline for now, will discuss with ID agrees with CBC today -- would like to be discharged home with hospice Palliative Care Service on board, appreciate the recommendations Likely Metabolic Encephalopathy: Resolved mental status back to baseline H/O fall resulting in head trauma secondary to dizziness while lifting a box prior to admission per patient declined CT head Elevated troponin Levels trending down Denies any chest pain EKG: sinus tachy, Nonspecific ST and T wave abnormality hold asa due to Anemia No aggressive management per patient/family Anemia/Thrombocytopenia had a episode of GI bleed 2 weeks ago No acute bleeding issues Hgb 6.4>>>>8.3>>>8.2 S/P 2 units PRBCs Pt does want any EGD and colonoscopy hold aspirin Discussed with patient and family: Prefers no future blood transfusions -- agrees with CBC today Mild Rhabdo CK level [id number] given IV fluids COPD CXR showed Emphysema without acute cardiopulmonary process. Continue oxygen supplement and Duoneb No signs of exacerbation DVT px SCD due to anemia CODE STATUS DNR/DNI Pt has been on hospice for 2 yrs Plan to return home with hospice once accepted , likely tomorrow per case management Current Inpatient Medications: Current Inpatient Medications Medications (Trade) Dose Ordered Sig/Al Route Start Time Stop Time Status Last Admin Dose Admin Citalopram Hydrobromide (celeXA TAB) 10 mg DAILY PO 03/31/17 09:00 04/30/17 08:59 04/05/17 08:55 10 MG Docusate Sodium (coLACE CAP) 100 mg DAILY PO 03/31/17 09:00 04/30/17 08:59 04/05/17 08:55 100 MG Hydroxyzine HCl (Vistaril Tab) 10 mg Q6 PRN PO 03/31/17 04:30 04/30/17 04:29 Multivitamins (Multivitamin Tab) 1 tab DAILY PO 03/31/17 09:00 04/30/17 08:59 04/05/17 08:56 1 TAB Albuterol (Proair Hfa) 1 puffs Q4 PRN INH 03/31/17 04:30 04/30/17 04:29 Pantoprazole Sodium (Protonix Tab) 40 mg DAILY PO 03/31/17 09:00 04/30/17 08:59 04/05/17 08:56 40 MG Albuterol/ Ipratropium (Duoneb) 3 ml Q4R PRN INH 03/31/17 04:30 04/30/17 04:29 04/01/17 08:28 3 ML Acetaminophen (Tylenol Tab) 650 mg Q4H PRN PO 03/31/17 23:45 04/30/17 23:44 04/01/17 00:02 650 MG Doxycycline Hyclate (Vibramycin Cap) 100 mg BID PO 04/01/17 20:00 04/08/17 20:59 04/05/17 08:56 100 MG
[2017-04-05 21:08] LABS: HEMATOCRIT 29.8 % (42-52); MEAN CELL VOLUME 70.1 fL (80-100); MEAN CORPUSCULAR HEMOGLOBIN 20.2 pg (25-34); MEAN CORPUSCULAR HGB CONC 28.9 g/dl (32-36); PLATELET COUNT 239 K/uL (130-400); RED BLOOD COUNT 4.25 M/uL (4.7-6.1); WHITE BLOOD COUNT 7.47 K/uL (4.8-10.8)
[2017-04-05 21:11] LABS: ACANTHOCYTES 1+; ANISOCYTOSIS PRESENT; COMPLETE YES; EOSINOPHIL % 1.7 %; LYMPH ABS # 1.43 K/uL (1.2-3.4); LYMPHOCYTE % 19.1 %; NEUTROPHILS % 58.4 %; VARIANT LYM ABS # 0.97 K/uL
[2017-04-05 23:45] VITALS: BP 120/66; PULSE 91; TEMP 36.8; O2SAT 100
[2017-04-06 07:24] VITALS: BP 121/72; PULSE 83; TEMP 36.6; O2SAT 99
[2017-04-06] MEDS: PANTOprazole SOD 40 MG TAB PO SCH (07:50)
[2017-04-06] MEDS: DOCUSATE SODIUM 100 MG CAP PO SCH (07:50)
[2017-04-06] MEDS: DOXYCYCLINE HYCLATE 100 MG CAP PO SCH (07:50)
[2017-04-06] MEDS: CITALOPRAM 20 MG TAB PO SCH (07:50)
[2017-04-06] MEDS: MULTIVITAMIN TAB PO SCH (07:50)
[2017-04-06 08:50] VITALS: O2SAT 98
[2017-04-06] MEDS ORDERED: DXY100 PO (11:57)
--- NOTE | 2017-04-06 12:00 | Discharge Instructions ---
Discharge Instructions Date of Service Apr 06, 2017. 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 Instructions / Follow-Up Instructions / Follow-Up PLEASE REVIEW YOUR NEW MEDICATION LIST AND FOLLOW INSTRUCTIONS CAREFULLY. TAKE YOGURT DAILY WHILE ON ANTIBIOTICS AND AT LEAST 1 WEEK AFTER FINISHING ANTIBIOTICS. DRINK PLENTY OF FLUIDS. CALL PRIMARY CARE PHYSICIAN OR THE HOSPICE SERVICE IMMEDIATELY IF WITH WORSENING OF SYMPTOMS. FOLLOW UP WITH DR. CUETO ON Sunday04/13/17 AT 11:05AM. Current Hospital Diet Patient's current hospital diet: AHA Diet (Heart Healthy) Discharge Diet Recommended Diet: AHA Diet (Heart Healthy) Pending Studies Studies pending at discharge: no Medical Emergencies . Who to Call and When: Medical Emergencies: If at any time you feel your situation is an emergency, please call 911 immediately. . Non-Emergent Contact Non-Emergency issues call your: Primary Care Provider Call Non-Emergent contact if: you have a fever, you have any medication questions . . "Provider Documentation" section prepared by Santosh Hendricks. . VTE Core Measure Inpt VTE Proph given/why not?: SCD's
--- NOTE | 2017-04-06 12:02 | Progress Note ---
Medicine Progress Note Date & Time of Visit: Apr 06, 2017 at 11:45. Subjective seen sitting up in bed, alert, in good spirits states he feels fine overall denies fever/chills, headache, weakness, dizziness, chest pain, dyspnea denies other symptoms states he is ready and would like to be discharged today Objective Last 8 Hrs Date Time Temp Pulse Resp B/P (MAP) Pulse Ox O2 Delivery O2 Flow Rate FiO2 04/06/17 08:50 98 Nasal Cannula 2.0 04/06/17 07:24 36.6 83 18 121/72 (88) 99 Nasal Cannula 2.0 Physical Exam: General- oriented x 3, not in distress, speaks in sentences with no effort Neck- no JVD Lungs- clear breath sounds bilaterally Heart- regular rhythm; no murmur, normal rate Abdomen- normal bowel sounds, soft, nontender Extremities- no pretibial edema, no calf tenderness Neuro- alert, oriented x 3;no gross focal deficits Skin- warm & dry Laboratory Results: Last 24 Hours Test 04/05/17 19:48 White Blood Count 7.47 K/uL Red Blood Count 4.25 M/uL Hemoglobin 8.6 g/dL Hematocrit 29.8 % Mean Corpuscular Volume 70.1 fL Mean Corpuscular Hemoglobin 20.2 pg Mean Corpuscular Hemoglobin Concent 28.9 g/dl Platelet Count 239 K/uL RDW Standard Deviation 60.2 fL RDW Coefficient of Variation 23.4 % Neutrophils % (Manual) 58.4 % Lymphocytes % (Manual) 19.1 % Variant Lymphocytes % (manual) 13.0 % Monocytes % (Manual) 7.8 % Eosinophils % (Manual) 1.7 % Neutrophils # (Manual) 4.36 K/uL Total Absolute Neutrophils 4.36 K/uL Lymphocytes # (Manual) 1.43 K/uL Absolute Variant Lymphocytes 0.97 K/uL Total Absolute Lymphocytes 2.40 K/uL Monocytes # (Manual) 0.58 K/uL Eosinophils # (Manual) 0.13 K/uL Anisocytosis PRESENT Acanthocytes 1+ Assessment & Plan Probable Sepsis, 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 Leigh recommend to continue Doxycycline to complete 14 days -- stable overall continue Doxycycline for now, will discuss with ID -- would like to be discharged home with hospice Palliative Care Service on board, appreciate the recommendations ff up with PCP in 1 week Likely Metabolic Encephalopathy: Resolved mental status back to baseline H/O fall resulting in head trauma secondary to dizziness while lifting a box prior to admission per patient declined CT head Elevated troponin Levels trending down Denies any chest pain EKG: sinus tachy, Nonspecific ST and T wave abnormality hold asa due to Anemia No aggressive management per patient/family Anemia/Thrombocytopenia had a episode of GI bleed 2 weeks ago No acute bleeding issues Hgb 6.4>>>>8.3>>>8.2 S/P 2 units PRBCs Pt does want any EGD and colonoscopy hold aspirin Discussed with patient and family: Prefers no future blood transfusions -- Hg stable around 8 Plt improved to 200k -- monitor CBC as outpatient Mild Rhabdo, Resolved given IV fluids CK level [id number]>>>[id number]>>>[id number] COPD CXR showed Emphysema without acute cardiopulmonary process. Continue oxygen supplement and Duoneb No signs of exacerbation DVT px SCD due to anemia CODE STATUS DNR/DNI DISPOSITION d/c home with hospice services ff up with PCP in 1 week Current Inpatient Medications: Current Inpatient Medications Medications (Trade) Dose Ordered Sig/Al Route Start Time Stop Time Status Last Admin Dose Admin Citalopram Hydrobromide (celeXA TAB) 10 mg DAILY PO 03/31/17 09:00 04/30/17 08:59 04/06/17 07:50 10 MG Docusate Sodium (coLACE CAP) 100 mg DAILY PO 03/31/17 09:00 04/30/17 08:59 04/06/17 07:50 100 MG Hydroxyzine HCl (Vistaril Tab) 10 mg Q6 PRN PO 03/31/17 04:30 04/30/17 04:29 Multivitamins (Multivitamin Tab) 1 tab DAILY PO 03/31/17 09:00 04/30/17 08:59 04/06/17 07:50 1 TAB Albuterol (Proair Hfa) 1 puffs Q4 PRN INH 03/31/17 04:30 04/30/17 04:29 Pantoprazole Sodium (Protonix Tab) 40 mg DAILY PO 03/31/17 09:00 04/30/17 08:59 04/06/17 07:50 40 MG Albuterol/ Ipratropium (Duoneb) 3 ml Q4R PRN INH 03/31/17 04:30 04/30/17 04:29 04/01/17 08:28 3 ML Acetaminophen (Tylenol Tab) 650 mg Q4H PRN PO 03/31/17 23:45 04/30/17 23:44 04/01/17 00:02 650 MG Doxycycline Hyclate (Vibramycin Cap) 100 mg BID PO 04/01/17 20:00 04/08/17 20:59 04/06/17 07:50 100 MG
--- NOTE | 2017-04-06 12:06 | Discharge Summary ---
Discharge Summary Date of Service Apr 06, 2017. 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 Procedures: S/P 2 UNITS PRBC TRANSFUSION CHEST ONE VIEW PORTABLE HISTORY: 81 years-old Male Evaluate Fever/Sepsis acute fever and sepsis COMPARISON: Chest radiograph 10/07/2015, chest CT 09/08/2013 TECHNIQUE: Semiupright AP view of the chest FINDINGS: Cardiac silhouette is within normal limits. There is tortuosity and atherosclerosis of the aorta. No pneumothorax, pleural effusion, focal airspace consolidation or overt pulmonary edema. Hyperinflated lungs are noted with emphysematous changes and chronic coarsened interstitial opacities. Bones are grossly intact. IMPRESSION: Emphysema without acute cardiopulmonary process. Pending Studies/Follow-Up: Please refer to hospital course below. Medication Reconciliation New Medications: Doxycycline Hyclate (Doxycycline Hyclate) 100 Mg Cap 100 MG PO BID for 9 Days, #18 CAP 0 Refills Continued Medications: Albuterol Sulfate (Proair Respiclick) 108 Mcg/Act Aer 1 PUFF INH Q4 PRN for Shortness of Breath Citalopram Hydrobromide (Celexa) 10 Mg Tab 10 MG PO DAILY, TAB Docusate Sodium (Colace) 100 Mg Cap 100 MG PO DAILY for 30 Days, #30 CAP Home O2 Therapy (Oxygen) Gas 3 LITERS NA CONTINOUS, BTL Hydroxyzine HCl (Hydroxyzine HCl) 10 Mg Tab 10 MG PO Q6 PRN for Itching Lorazepam (Ativan) 0.5 Mg Tab 0.5 MG PO Q4 PRN for Anxiety, TAB Morphine Sulfate (Morphine Sulfate) 20 Mg/1 Ml Soln 5-10 MG PO DIRECTED PRN for PRN Multivitamin (Multivitamin) Tab 1 TAB PO DAILY, TAB Omeprazole (Prilosec) 20 Mg Capcr 20 MG PO DAILY, CAP Oxycodone/Acetaminophen 5MG/325MG (Percocet 5MG/325MG) Tab 1 TABLET PO Q4H PRN for Pain, TAB PAIN Discontinued Medications: Aspirin (Aspirin Ec) 81 Mg Tab 81 MG PO DAILY Admission Information HPI (per Admitting provider): 81 year old male with PMH of COPD, HTN, AAA, CVA was brought to the Emergency Room with complaints altered mental status and weakness. History mostly obtained from his nephew. Pt has been on hospice for the past 2 yrs. His nephew (KATE) went to visit him and found him on the floor cover with urine. Pt was very confused and weak and was not able to recognize his hospice nurse. As per nephew, Pt lives alone. He checked on him yesterday, but pt was sleeping. Pt tried to call his niece last night, but the niece missed his called. when niece called back, pt did not answered. Nephew said that pt was very pale today. He said about 2 weeks ago, pt has a bloody bowel movement. Nephew said that the hospice nurse made him sign a paper to bring pt to the hospital for eval. He has been having a productive cough associated with chills. In the ER, he was found to be febrile. Denies any chest pain, palpitation, neck pain, headache, dizziness. Physical Exam (per Admitting): General Appearance: + cachetic Head: atraumatic Eyes: PERRL ENT: + pertinent finding (decrease hearing function) Neck: no JVD, trachea midline Respiratory/Chest: no respiratory distress, no accessory muscle use, + pertinent finding (poor air entry) Cardiovascular: no edema, no JVD Abdomen/GI: normal bowel sounds, non tender, soft Back: no CVA tenderness Extremities/Musculoskelatal: no calf tenderness Neurologic/Psych: alert, normal mood/affect, + pertinent finding (Oriented to people and place, able to move all 4 extremities) Skin: + pertinent finding (pale) Hospital Course Probable Sepsis, 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 Leigh- ID recommend to continue Doxycycline to complete 14 days -- would like to be discharged home with hospice Palliative Care Service was consulted ff up with PCP in 1 week Likely Metabolic Encephalopathy: Resolved mental status back to baseline H/O fall resulting in head trauma secondary to dizziness while lifting a box prior to admission per patient declined CT head Elevated troponin Levels trending down Denies any chest pain EKG: sinus tachy, Nonspecific ST and T wave abnormality D/C asa due to Anemia No aggressive management per patient/family Anemia/Thrombocytopenia had a episode of GI bleed 2 weeks ago No acute bleeding issues Hgb 6.4>>>>8.3>>>8.2 S/P 2 units PRBCs Pt does want any EGD and colonoscopy D/C aspirin Discussed with patient and family: Prefers no future blood transfusions -- Hg stable around 8 Plt improved to 200k -- monitor CBC as outpatient Mild Rhabdo, Resolved given IV fluids CK level [id number]>>>[id number]>>>497 COPD CXR showed Emphysema without acute cardiopulmonary process. Continue oxygen supplement and Duoneb No signs of exacerbation DVT px SCD due to anemia CODE STATUS DNR/DNI DISPOSITION d/c home with hospice services ff up with PCP in 1 week Total time spent on discharge = 30 MINUTES This includes examination of the patient, discharge planning, medication reconciliation, and communication with other providers. Discharge Instructions Discharge Instructions Date of Service Apr 06, 2017. 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 Instructions / Follow-Up Instructions / Follow-Up PLEASE REVIEW YOUR NEW MEDICATION LIST AND FOLLOW INSTRUCTIONS CAREFULLY. TAKE YOGURT DAILY WHILE ON ANTIBIOTICS AND AT LEAST 1 WEEK AFTER FINISHING ANTIBIOTICS. DRINK PLENTY OF FLUIDS. CALL PRIMARY CARE PHYSICIAN OR THE HOSPICE SERVICE IMMEDIATELY IF WITH WORSENING OF SYMPTOMS. FOLLOW UP WITH DR. CUETO ON Sunday04/13/17 AT 11:05AM. Current Hospital Diet Patient's current hospital diet: AHA Diet (Heart Healthy) Discharge Diet Recommended Diet: AHA Diet (Heart Healthy) Pending Studies Studies pending at discharge: no Medical Emergencies . Who to Call and When: Medical Emergencies: If at any time you feel your situation is an emergency, please call 911 immediately. . Non-Emergent Contact Non-Emergency issues call your: Primary Care Provider Call Non-Emergent contact if: you have a fever, you have any medication questions . . "Provider Documentation" section prepared by Santosh Hendricks. . VTE Core Measure Inpt VTE Proph given/why not?: SCD's
== END 2017-04-06 13:58 | disposition hospice, home (50) | DRG 871 ==
LOC: EDBD 17:37 → C.EDA 17:41 → C.2T 21:44 → ENRESERV 21:55 → UNDOADMIN 23:03 → C.2T 23:03 → EDBEDREQ 04-01 10:25 → ENRESERV 04-01 10:35 → C.4E 04-01 13:07
PROVIDERS: ADMIT Internal Medicine; ATTEND Internal Medicine
DX: A41.9 Sepsis, unspecified organism (principal); G93.41 Metabolic encephalopathy; M62.82 Rhabdomyolysis; Z66 Do not resuscitate; Z51.5 Encounter for palliative care; J44.9 Chronic obstructive pulmonary disease, unspecified; I10 Essential (primary) hypertension; D64.9 Anemia, unspecified; Z87.891 Personal history of nicotine dependence; Z79.82 Long term (current) use of aspirin

== ENCOUNTER → 2017-05-04 | Outpatient (CLI) | payer OTHER ==
[~2017-05-04] MED LIST changes: +ALBU18002 INH; -ALBU1AER9 INH; -ASPI81TA28 PO; -ATOR-24 PO; +ATR10 PO; +CITA10TA8 PO; +DOCU-94 PO; +DXY100 PO; +LORA-741 PO; -METO25TA56 PO; +MRPL PO; +MULT-506 PO; +OXGN; +OXYC-57 PO; +PRLSR20 PO; -VITA1CAP4 PO
--- NOTE | 2017-05-04 12:01 | DIAGNOSTIC IMAGING REPORT ---
LEFT LOWER EXTREMITY VENOUS DOPPLER CLINICAL HISTORY: Left leg swelling. COMPARISON STUDY: No previous studies for comparison. TECHNIQUE: Sonography of the deep venous system of the left lower extremity was performed. Compression and augmentation were evaluated. FINDINGS: There is extensive occlusive deep venous thrombus throughout the left lower extremity, including thrombus within the left common femoral, superficial femoral, popliteal, posterior tibial and peroneal veins. The vessels are expanded. This suggest acute thrombus. IMPRESSION: Extensive acute deep venous thrombus within the left lower extremity. Findings discussed with Dr. Young at time of dictation. Electronically signed by: Kaushal Tavera M.D. 05/04/2017 12:00 PM Dictated Date/Time: 05/04/2017 11:59 AM
== END | disposition home or self-care (01) ==
LOC: C.ULTRBC 11:03
PROVIDERS: ATTEND Internal Medicine
DX: I82.402 Acute embolism and thrombosis of unspecified deep veins of left lower extremity (principal)

== ENCOUNTER 2017-08-08 19:31 | Emergency (ER) | payer OTHER ==
[~2017-08-08] VITALS: Ht 182.9 cm; Wt 59.5 kg
[~2017-08-08 19:31] MED LIST changes: -LORA-741 PO; +LORA-741 UT; -MRPL PO
[2017-08-08] MEDS ORDERED: MRPL PO (19:33)
[2017-08-08 19:43] VITALS: TEMP 36.8; Ht 182.9 cm; Wt 59.5 kg
[2017-08-08 19:54] VITALS: O2SAT 96
[2017-08-08] MEDS ORDERED: ONDANSETRON INJ 2 MG/ML 2 ML VIAL IV STA (20:02)
[2017-08-08] MEDS ORDERED: SODIUM CHLORIDE 0.9% 1000ML 1,000 ML IV STA (20:02)
[2017-08-08] MEDS ORDERED: MoRPHine SULFATE 4 MG/ML 1 ML CARP\\VIAL IV PRN (20:15)
[2017-08-08] MEDS ORDERED: VNTHFA/IN INH (20:51)
[2017-08-08] MEDS ORDERED: OXYC18CA PO (20:51)
[2017-08-08] MEDS ORDERED: APIX1TAB3 PO (20:51)
[2017-08-08] MEDS ORDERED: HYOS0.1271 SL (20:51)
[2017-08-08 20:55] LABS: ALBUMIN 3.4 gm/dl (3.4-5.0); CALCIUM 8.6 mg/dl (8.5-10.1); CREATININE 0.82 mg/dl (0.60-1.40)
[2017-08-08 20:57] LABS: TOTAL PROTEIN 7.2 gm/dl (6.4-8.2)
[2017-08-08 21:02] LABS: BASO % 0.3 %; BASO ABS # 0.02 K/uL (0-0.2); EOS % 0.9 %; EOS ABS # 0.06 K/uL (0-0.5); HEMATOCRIT 25.2 % (42-52); HEMOGLOBIN 7.4 g/dL (14.0-18.0); IG# 0.02 K/uL (0.00-0.02); LYMPH % 10.2 %; LYMPH ABS # 0.69 K/uL (1.2-3.4); MEAN CELL VOLUME 73.7 fL (80-100); MEAN CORPUSCULAR HEMOGLOBIN 21.6 pg (25-34); MEAN CORPUSCULAR HGB CONC 29.4 g/dl (32-36); MONO % 11.3 %; MONO ABS # 0.76 K/uL (0.11-0.59); PLATELET COUNT 289 K/uL (130-400); RED CELL DISTRIBUTION WIDTH CV 15.9 % (11.5-14.5); RED CELL DISTRIBUTION WIDTH SD 42.6 fL (36.4-46.3); WHITE BLOOD COUNT 6.75 K/uL (4.8-10.8)
--- NOTE | 2017-08-08 21:23 | DIAGNOSTIC IMAGING REPORT ---
ABD/PELVIS WITHOUT FOR STONE HISTORY: 81 years-old Male flank pain acute generalized abdominal pain with palpable abnormality of the central abdomen. COMPARISON: CTA of the chest 09/08/2013 TECHNIQUE: Multiple axial CT images of the abdomen and pelvis were obtained without contrast. A dose lowering technique was used consistent with the principals of LAVELL. FINDINGS: Study is motion degraded. Emphysema with areas of subsegmental pleural-parenchymal scarring and atelectasis noted within the imaged lung bases. Mild bibasilar bronchial wall thickening. No pneumatosis or pneumoperitoneum identified. Imaged inferior cardiac chambers are mildly enlarged. Trace pericardial effusion. Coronary arterial disease. There appears be mild dilation of the ascending thoracic aorta which was noted on comparison study. Extensive atherosclerosis of the descending thoracic aorta and abdominal aorta. Fusiform aneurysmal dilation of the infrarenal abdominal aorta measures up to 3.7 x 3.8 cm. Additionally, there is dilation of the bilateral common iliac arteries which measure up to 1.5 cm transversely. 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 No evidence of aneurysm rupture. Extensive atherosclerosis of the iliac arteries and image bilateral femoral arteries. Dilation of the descending thoracic aorta measures 3.1 x 3.3 cm. Evaluation of the solid abdominal organs is limited without the use of IV contrast. Within the limitations of the study, the liver, spleen, pancreas and adrenal glands are unremarkable. Moderate gallbladder distention. Low attenuating 12 mm lesion of the superior pole left kidney suggests renal cyst with additional probable cyst involving the inferior pole right kidney measuring 2.0 cm. There are at least 2 punctate nonobstructing calculi of the left kidney. No ureteral calculi or obstructive uropathy identified. Bilateral renal vascular calcifications. Urinary bladder is unremarkable. Phleboliths are seen within the pelvis. No bowel obstruction or focal bowel wall thickening identified. Mild to moderate colonic diverticulosis without CT evidence of acute diverticulitis. Moderate stool wire above the cecum and ascending colon. Visualized appendix appears normal. Moderate sized fat filled supraumbilical ventral abdominal wall hernia, diastases 3.9 cm. Evidence of prior left inguinal hernia repair. The bones appear moderately demineralized. Dextroscoliosis of the lumbar spine with severe multilevel degenerative changes about the spine. IMPRESSION: 1. Motion degraded exam without acute intra-abdominal or intrapelvic abnormality identified. 2. Moderate sized fat filled supraumbilical ventral abdominal wall hernia likely accounts for the reported palpable abnormality of the central abdomen. 3. Fusiform aneurysmal dilation of the abdominal aorta measures up to 3.8 cm. 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 No evidence of aneurysm rupture. 4. Colonic diverticulosis without diverticulitis. 5. Nonobstructing left nephrolithiasis. 6. Emphysema with probable bronchitis. The above report was generated using voice recognition software. It may contain grammatical, syntax or spelling errors. Electronically signed by: Jules Alonso M.D. 08/08/2017 9:22 PM Dictated Date/Time: 08/08/2017 9:10 PM
[2017-08-08 21:30] VITALS: BP 113/93; PULSE 99
--- NOTE | 2017-08-08 21:52 | EMERGENCY ROOM VISIT NOTE ---
History Report prepared by Bee: Sekou Rodriguez Under the Supervision of: Dr. Jeffry Mohamud D.O. First contact with patient: 19:39 Stated Complaint: AB & BACK PAIN History of Present Illness The patient is an 81 year old male who presents to the Emergency Room with complaints of worsening pain in his lower abdomen and back that began 4 days ago. The patient states that he has had pain in his abdomen for upwards of 2 years, but it significantly worsened 4 days ago. He states that his pain is wrapping around his abdomen into his mid back. Nothing improves the pain. The patient also noted an area of swelling in the right lower abdominal quadrant. 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 Source of History: patient Onset: 4 days ago Position: abdomen, back (lower) Timing: worsening Modifying Factors (Relieving): other (N/A) Note: Swelling in RLQ of abdomen. Review of Systems See HPI for pertinent positives & negatives. A total of 10 systems reviewed and were otherwise negative. Past Medical & Surgical Medical Problems: (1) Altered mental status (2) Anemia (3) Aortic aneurysm rupture (4) Confusion (5) COPD (chronic obstructive pulmonary disease) (6) Hypertension Family History Omitted secondary to age. Social History Smoking Status: Former Smoker Alcohol Use: none Drug Use: none Marital Status: Housing Status: lives alone Occupation Status: retired Current/Historical Medications Scheduled Apixaban (Eliquis), 5 MG PO BID Citalopram Hydrobromide (Celexa), 10 MG PO DAILY Docusate Sodium (Colace), 100 MG PO BID Home O2 Therapy (Oxygen), 3 LITERS NA CONTINOUS Hyoscyamine Sulfate (Hyoscyamine Sulfate), 0.125 MG SL Abdominal Pain Multivitamin (Multivitamin), 1 TAB PO DAILY Omeprazole (Prilosec), 20 MG PO DAILY Scheduled PRN Albuterol Hfa (Ventolin Hfa), 2 PUFFS INH Q4H PRN for Wheezing Hydroxyzine HCl (Hydroxyzine HCl), 10 MG PO Q6H PRN for Itching Lorazepam (Ativan), 0.5 MG UT Q4H PRN for Anxiety Morphine Sulfate (Morphine Sulfate), 5-10 MG PO Q1H PRN for Pain/SOB/ Restlessness Oxycodone (Xtampza ER), 18 MG PO DAILY PRN for Pain Allergies Coded Allergies: No Known Allergies (Verified , 03/30/17) Physical Exam Vital Signs Date Time Temp Pulse Resp B/P (MAP) Pulse Ox O2 Delivery O2 Flow Rate FiO2 08/08/17 22:00 97 08/08/17 21:30 99 18 113/93 96 Nasal Cannula 4.0 08/08/17 21:28 99 08/08/17 21:20 99 18 131/80 91 Nasal Cannula 4.0 08/08/17 20:38 96 20 141/97 96 Nasal Cannula 4.0 08/08/17 19:54 96 Nasal Cannula 4.0 08/08/17 19:54 96 Nasal Cannula 4.0 08/08/17 19:43 36.8 109 24 123/81 97 Nasal Cannula 4.0 Physical Exam CONSTITUTIONAL/VITAL SIGNS: Reviewed / noted above. GENERAL: Non-toxic in appearance. INTEGUMENTARY: Warm, dry, and [place]. HEAD: Normocephalic. EYES: without scleral icterus or trauma. ENT/OROPHARYNX: clear and moist. LYMPHADENOPATHY/NECK: Is supple without lymphadenopathy or meningismus. RESPIRATORY: Lungs clear and equal. CARDIOVASCULAR: Regular rate and rhythm. GI/ABDOMEN: Soft with mild tenderness in the right mid-abdominal region. There is a small protrusion in that area, likely related to an abdominal wall hernia. No organomegaly or pulsatile mass. No rebound or guarding. Normal bowel sounds. EXTREMITIES: Warm and well perfused. BACK: No CVA tenderness. NEUROLOGICAL: Intact without focal deficits. PSYCHIATRIC: normal affect. MUSCULOSKELETAL: Normally developed with good muscle tone. Medical Decision & Procedures ER Provider Diagnostic Interpretation: Radiology results as stated below per my review and radiologist interpretation: ABD/PELVIS WITHOUT FOR STONE HISTORY: 81 years-old Male flank pain acute generalized abdominal pain with palpable abnormality of the central abdomen. COMPARISON: CTA of the chest 09/08/2013 TECHNIQUE: Multiple axial CT images of the abdomen and pelvis were obtained without contrast. A dose lowering technique was used consistent with the principals of [place]. FINDINGS: Study is motion degraded. Emphysema with areas of subsegmental pleural-parenchymal scarring and atelectasis noted within the imaged lung bases. Mild bibasilar bronchial wall thickening. No pneumatosis or pneumoperitoneum identified. Imaged inferior cardiac chambers are mildly enlarged. Trace pericardial effusion. Coronary arterial disease. There appears be mild dilation of the ascending thoracic aorta which was noted on comparison study. Extensive atherosclerosis of the descending thoracic aorta and abdominal aorta. Fusiform aneurysmal dilation of the infrarenal abdominal aorta measures up to 3.7 x 3.8 cm. Additionally, there is dilation of the bilateral common iliac arteries which measure up to 1.5 cm transversely. 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 No evidence of aneurysm rupture. Extensive atherosclerosis of the iliac arteries and image bilateral femoral arteries. Dilation of the descending thoracic aorta measures 3.1 x 3.3 cm. Evaluation of the solid abdominal organs is limited without the use of IV contrast. Within the limitations of the study, the liver, spleen, pancreas and adrenal glands are unremarkable. Moderate gallbladder distention. Low attenuating 12 mm lesion of the superior pole left kidney suggests renal cyst with additional probable cyst involving the inferior pole right kidney measuring 2.0 cm. There are at least 2 punctate nonobstructing calculi of the left kidney. No ureteral calculi or obstructive uropathy identified. Bilateral renal vascular calcifications. Urinary bladder is unremarkable. Phleboliths are seen within the pelvis. No bowel obstruction or focal bowel wall thickening identified. Mild to moderate colonic diverticulosis without CT evidence of acute diverticulitis. Moderate stool wire above the cecum and ascending colon. Visualized appendix appears normal. Moderate sized fat filled supraumbilical ventral abdominal wall hernia, diastases 3.9 cm. Evidence of prior left inguinal hernia repair. The bones appear moderately demineralized. Dextroscoliosis of the lumbar spine with severe multilevel degenerative changes about the spine. IMPRESSION: 1. Motion degraded exam without acute intra-abdominal or intrapelvic abnormality identified. 2. Moderate sized fat filled supraumbilical ventral abdominal wall hernia likely accounts for the reported palpable abnormality of the central abdomen. 3. Fusiform aneurysmal dilation of the abdominal aorta measures up to 3.8 cm. 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 No evidence of aneurysm rupture. 4. Colonic diverticulosis without diverticulitis. 5. Nonobstructing left nephrolithiasis. 6. Emphysema with probable bronchitis. The above report was generated using voice recognition software. It may contain grammatical, syntax or spelling errors. Electronically signed by: Jules Alonso M.D. 08/08/2017 9:22 PM Dictated Date/Time: 08/08/2017 9:10 PM Laboratory Results 08/08/17 20:25 Red Blood Count 3.42, Mean Corpuscular Volume 73.7, Mean Corpuscular Hemoglobin 21.6, Mean Corpuscular Hemoglobin Concent 29.4, Mean Platelet Volume 9.0, Neutrophils (%) (Auto) 77.0, Lymphocytes (%) (Auto) 10.2, Monocytes (%) (Auto) 11.3, Eosinophils (%) (Auto) 0.9, Basophils (%) (Auto) 0.3, Neutrophils # (Auto ) 5.20, Lymphocytes # (Auto) 0.69, Monocytes # (Auto) 0.76, Eosinophils # (Auto ) 0.06, Basophils # (Auto) 0.02 08/08/17 20:25 Test 08/08/17 20:25 08/08/17 21:35 White Blood Count 6.75 K/uL (4.8-10.8) Red Blood Count 3.42 M/uL (4.7-6.1) Hemoglobin 7.4 g/dL (14.0-18.0) Hematocrit 25.2 % (42-52) Mean Corpuscular Volume 73.7 fL (80-100) Mean Corpuscular Hemoglobin 21.6 pg (25-34) Mean Corpuscular Hemoglobin Concent 29.4 g/dl (32-36) Platelet Count 289 K/uL (130-400) Mean Platelet Volume 9.0 fL (7.4-10.4) Neutrophils (%) (Auto) 77.0 % Lymphocytes (%) (Auto) 10.2 % Monocytes (%) (Auto) 11.3 % Eosinophils (%) (Auto) 0.9 % Basophils (%) (Auto) 0.3 % Neutrophils # (Auto) 5.20 K/uL (1.4-6.5) Lymphocytes # (Auto) 0.69 K/uL (1.2-3.4) Monocytes # (Auto) 0.76 K/uL (0.11-0.59) Eosinophils # (Auto) 0.06 K/uL (0-0.5) Basophils # (Auto) 0.02 K/uL (0-0.2) RDW Standard Deviation 42.6 fL (36.4-46.3) RDW Coefficient of Variation 15.9 % (11.5-14.5) Immature Granulocyte % (Auto) 0.3 % Immature Granulocyte # (Auto) 0.02 K/uL (0.00-0.02) Polychromasia 1+ Hypochromasia PRESENT Microcytosis PRESENT Anion Gap 8.0 mmol/L (3-11) Est Creatinine Clear Calc Drug Dose 57.4 ml/min Estimated GFR () 94.8 Estimated GFR (Non- 81.8 BUN/Creatinine Ratio 13.4 (10-20) Calcium Level 8.6 mg/dl (8.5-10.1) Total Bilirubin 0.4 mg/dl (0.2-1) Direct Bilirubin 0.1 mg/dl (0-0.2) Aspartate Amino Transf (AST/SGOT) 16 U/L (15-37) Alanine Aminotransferase (ALT/SGPT) 11 U/L (12-78) Alkaline Phosphatase 55 U/L (45-117) Total Protein 7.2 gm/dl (6.4-8.2) Albumin 3.4 gm/dl (3.4-5.0) Lipase 40 U/L (73-393) Urine Color YELLOW Urine Appearance CLEAR (CLEAR) Urine pH 5.0 (4.5-7.5) Urine Specific [place] 1.024 (1.000-1.030) Urine Protein NEG (NEG) Urine Glucose (UA) NEG (NEG) Urine Ketones 2+ (NEG) Urine Occult Blood NEG (NEG) Urine Nitrite NEG (NEG) Urine Bilirubin NEG (NEG) Urine Urobilinogen NEG (NEG) Urine Leukocyte Esterase NEG (NEG) Urine WBC (Auto) 0 /hpf (0-5) Urine RBC (Auto) 0-4 /hpf (0-4) Urine Hyaline Casts (Auto) 0 /lpf (0-5) Urine Epithelial Cells (Auto) 0-5 /lpf (0-5) Urine Bacteria (Auto) NEG (NEG) Laboratory results as stated above per my review. Medications Administered Medications (Trade) Dose Ordered Sig/Al Route Start Time Stop Time Status Last Admin Dose Admin Sodium Chloride 1,000 ml @ 999 mls/hr Q1H1M STAT IV 08/08/17 20:02 08/08/17 21:02 DC 08/08/17 20:32 999 MLS/HR Ondansetron HCl (Zofran Inj) 4 mg NOW STAT IV 08/08/17 20:02 08/08/17 20:06 DC 08/08/17 20:32 4 MG Morphine Sulfate (MoRPHine SULFATE INJ) 4 mg Q15M PRN IV 08/08/17 20:15 08/08/17 22:32 DC 08/08/17 20:33 4 MG ED Course 1953: Previous medical records were reviewed. The patient was evaluated in room A12B. A complete history and physical examination was performed. 2001: Ordered Zofran 4 mg IV, Sodium Chloride 1000 mL @ 999 mL/hr IV. 2014: Ordered Morphine Sulfate 4 mg IV. 2155:: On reevaluation, the patient is resting comfortable. I discussed the results and findings with the patient. He verbalized agreement of the treatment plan. The patient was discharged home. Medical Decision Differential considered: pancreatitis, hepatitis, or acute cholecystitis, AAA, UTI, pyelonephritis, kidney stones, appendicitis, diverticulitis, shingles, bowel obstruction mesenteric ischemia, intussusception,hernia, testicular torsion. This is an 81-year-old male who presents to the ED with a chief complaint of abdominal pain. The patient reports that he has had the pain for at least a year and half to 2 years. It seemed to get worse past couple of days. The patient reports an abdominal mass that seems to be a little tender. He has had this for some time as well. His vital signs are normal. His physical exam reveals the above findings. Laboratory studies reveal hemoglobin is 7.4. The patient's baseline is around 8. Per previous note in the patient, the patient does not want blood transfusions. His complete metabolic panel was normal, CT scan of the abdomen pelvis does not reveal any acute disease. The patient was told the results of this test. He was treated with IV morphine for pain. He does take morphine at home as well. The patient was felt to be stable for discharge. Impression Primary Impression: Anemia Additional Impression: Abdominal pain Scribe Attestation The scribe's documentation has been prepared under my direction and personally reviewed by me in its entirety. I confirm that the note above accurately reflects all work, treatment, procedures, and medical decision making performed by me. Departure Information Dispostion Home / Self-Care Referrals Ramirez Young MD (PCP) Additional Instructions Follow-up with your doctor for further care and evaluation in 1-2 days. Return to the emergency department for worsening or new symptoms or any concerns. You have been examined and treated today on an emergency basis only. This is not a substitute for, or an effort to provide, complete comprehensive medical care. It is impossible to recognize and treat all injuries or illnesses in a single emergency department visit. It is therefore important that you follow up closely with your doctor. Call as soon as possible for an appointment. Problem Qualifiers
[2017-08-08 22:00] VITALS: O2SAT 97
== END 2017-08-08 22:00 | disposition home or self-care (01) ==
LOC: EDBD 19:31 → C.EDA 19:33
DX: D64.9 Anemia, unspecified (principal); R10.30 Lower abdominal pain, unspecified; J44.9 Chronic obstructive pulmonary disease, unspecified; I10 Essential (primary) hypertension; Z86.79 Personal history of other diseases of the circulatory system; Z86.718 Personal history of other venous thrombosis and embolism